=== PATIENT | female | born 1955 | race Caucasian/White ===

== ENCOUNTER → 2016-07-06 | Outpatient (CLI) | payer BC ==
[~2016-07-06] MED LIST: AMT/25 PO; ASPI1TAB83; ATOR-22 PO; COQ; FLAX12003 PO; GABA1CAP4 PO; GABA600T PO; GABA800T PO; GLC/500 PO; HYDO25 TOP; INSUINJ4 SQ; LISI-729 PO; MULT-513 PO; NVLGI SC; PRED20TA PO; RQP/2 PO; SUMA25TA12 PO; TRAM-10 PO
--- NOTE | 2016-07-06 17:04 | DIAGNOSTIC IMAGING REPORT ---
RIGHT KNEE 1 OR 2 VIEWS ROUTINE CLINICAL HISTORY: Right knee pain. COMPARISON: Right femur radiographs June 28, 2010. FINDINGS: Alignment of the right knee is anatomic. No fracture or joint effusion is present. Joint spaces are preserved. There is mild osteophytosis within the right knee. IMPRESSION: 1. No acute fracture or joint effusion of the right knee. 2. Mild osteoarthritis of the right knee. Electronically signed by: Martín Browne M.D. 07/06/2016 5:02 PM Dictated Date/Time: 07/06/2016 5:01 PM
== END | disposition home or self-care (01) ==
LOC: C.RAD 16:38
PROVIDERS: ATTEND Nurse Practitioner Family
DX: M25.561 Pain in right knee (principal)

== ENCOUNTER → 2016-08-11 | Outpatient (CLI) | payer BC ==
--- NOTE | 2016-08-11 14:09 | MAMMOGRAPHY REPORT ---
BILATERAL DIGITAL SCREENING MAMMOGRAM WITH CAD: 08/11/2016 CLINICAL HISTORY: Routine screening. Patient has no complaints. TECHNIQUE: Bilateral CC and MLO views were obtained. Current study was also evaluated with a Compu ter Aided Detection (CAD) system. COMPARISON: Comparison is made to exams dated: 07/17/2013 mammogram - [facility], mammogram - [facility], 01/06/2010 mammogram - [facility], 09/25/2007 , 03/28/2007, and 09/25/2007. BREAST COMPOSITION: The tissue of both breasts is heterogeneously dense, which may obscure small ma sses. FINDINGS: There is an incompletely visualized partially circumscribed 7 mm mass in the far posterio r, slightly lateral right breast, only seen on the CC view, for which additional spot compression to mosynthesis views and possibly ultrasound are recommended. It is unclear if this projects inferiorl y or superiorly based on the MLO view. There is decreasing nodularity in the left breast most likely represent fluctuating cysts. No other suspicious mass, architectural distortion or cluster of microcalcifications is seen. IMPRESSION: ACR BI-RADS CATEGORY 0: INCOMPLETE EVALUATION: NEED ADDITIONAL IMAGING EVALUATION The incompletely visualized, partially circumscribed 7 mm mass in the far posterior, lateral right b reast needs additional imaging evaluation. The patient will be called to schedule an appointment. Approximately 10% of breast cancers are not detected with mammography. A negative mammographic repor t should not delay biopsy if a clinically suggestive mass is present. Lovely Hilliard M.D. ay/:08/11/2016 12:59:47 Microbiology Lab Technician: Amanda BRONSON(Courtney)(Marcus), [facility] letter sent: Addl Imaging 0 BI-RADS Code: ACR BI-RADS Category 0: Incomplete Evaluation: Need Additional Imaging Evaluation
== END | disposition home or self-care (01) ==
LOC: C.MAMM 12:19
PROVIDERS: ATTEND Nurse Practitioner Family
DX: Z12.31 Encounter for screening mammogram for malignant neoplasm of breast (principal); N63 Unspecified lump in breast

== ENCOUNTER → 2016-08-18 | Outpatient (CLI) | payer BC ==
--- NOTE | 2016-08-18 13:12 | MAMMOGRAPHY REPORT ---
UNILATERAL RIGHT DIGITAL DIAGNOSTIC MAMMOGRAM TOMOSYNTHESIS AND TARGETED RIGHT ULTRASOUND: 08/18/2016 CLINICAL HISTORY: Callback from screening mammogram for right breast asymmetry. TECHNIQUE: Breast tomosynthesis in addition to standard 2D mammography was performed. Spot compress ion right CC and MLO tomosynthesis images including C views were obtained. COMPARISON: Comparison is made to exams dated: 08/11/2016 mammogram, 07/17/2013 mammogram - [facility], 10/30/2010 mammogram - [facility], 01/06/2010 mammogram - [facility], 06/05/2008, and 09/25/2007. BREAST COMPOSITION: The tissue of the right breast is heterogeneously dense, which may obscure small masses. FINDINGS: The asymmetry seen within the right slightly lateral far posterior breast on the cc view do es not persist on the additional spot compression views. Targeted ultrasound was performed of the ri ght slightly lateral breast in the region of the mammographic asymmetry. Sonographically normal tiss ue is seen, without evidence of a mass or other suspicious sonographic abnormality. The asymmetry is felt to be benign and likely represents partial visualization of the pectoralis muscle. IMPRESSION: ACR BI-RADS CATEGORY 2: BENIGN, TARGETED ULTRASOUND ACR BI-RADS CATEGORY 2: BENIGN There right breast asymmetry does not persist on the additional views, without corresponding sonograp hic abnormality evident. The asymmetry is benign and likely represents pectoralis muscle. There is no mammographic or targeted sonographic evidence of malignancy. A 1 year screening mammogram is recom mended. The patient has been verbally notified of the results. Approximately 10% of breast cancers are not detected with mammography. A negative mammographic report should not delay biopsy if a clinically suggestive mass is present. Joanie Ayala M.D. /:08/18/2016 10:35:13 Template Worker: Morenita BRONSON(Courtney)(Marcus), [facility] letter sent: Normal 1/2 BI-RADS Code: ACR BI-RADS Category 2: Benign Ultrasound BI-RADS: ACR BI-RADS Category 2: Benign
== END | disposition home or self-care (01) ==
LOC: C.MAMM 07:56
PROVIDERS: ATTEND Nurse Practitioner Family
DX: N63 Unspecified lump in breast (principal)

== ENCOUNTER → 2016-12-28 | Outpatient (CLI) | payer BC ==
[~2016-12-28] MED LIST changes: -COQ; -GABA1CAP4 PO; -GABA800T PO; -HYDO25 TOP; -PRED20TA PO; -TRAM-10 PO
--- NOTE | 2016-12-28 10:24 | DIAGNOSTIC IMAGING REPORT ---
MRI LUMBAR SPINE W/O CONTRAST CLINICAL HISTORY: Back pain with bilateral leg radiculopathy. Rest disc like syndrome. TECHNIQUE: Sagittal and axial T1, T2 and STIR images were obtained. COMPARISON STUDY: Conventional radiographic study dated 06/28/2010 OBSERVATIONS: The vertebral bodies and posterior elements appear intact. There is no abnormal bony signal present to suggest a marrow replacement process. L1-2: There is a small broad-based left paracentral disc protrusion. There is mild effacement of the thecal sac. There is no foraminal narrowing. L2-3: There is a disc bulge and broad-based central disc protrusion. There is effacement of thecal sac with mild spinal canal narrowing. There is no significant foraminal stenosis L3-4: There is a circumferential disc bulge. There is a small left posterior lateral disc protrusion. There is mild spinal canal narrowing. There is no significant foraminal stenosis L4-5: Is an annular fissure and small central disc protrusion. There is mild triangular spinal canal narrowing. There is mild right-sided foraminal narrowing. L5-S1: There is a circumferential disc bulge and tiny central disc protrusion. There is no significant spinal stenosis. There is facet joint arthropathy. There is no significant foraminal stenosis. The conus medullaris and cauda equina appear normal. IMPRESSION: 1. Moderate multilevel spondylitic changes with multilevel disc bulges and multilevel small disc protrusions. There is mild multilevel spinal canal narrowing. Electronically signed by: Tyree Zaldivar M.D. 12/28/2016 10:22 AM Dictated Date/Time: 12/28/2016 10:17 AM
== END | disposition home or self-care (01) ==
LOC: C.MRIBC 09:02
PROVIDERS: ATTEND Physician Assistant Medical
DX: M47.26 Other spondylosis with radiculopathy, lumbar region (principal); M51.26 Other intervertebral disc displacement, lumbar region

== ENCOUNTER 2017-04-03 07:53 | Emergency (ER) | payer BC ==
[~2017-04-03] VITALS: Ht 170.2 cm; Wt 60.2 kg
[~2017-04-03 07:53] MED LIST changes: -ATOR-22 PO; +COQ; +GABA800T PO; +TRAM-10 PO
[2017-04-03 08:05] VITALS: TEMP 36.7; Ht 170.2 cm; Wt 60.2 kg
[2017-04-03] MEDS ORDERED: KETOROLAC TROMETHAMINE 30 MG/ML VIAL IV STA (08:24)
[2017-04-03] MEDS ORDERED: DiphenhydrAMINE HCL 50 MG/ML VIAL IV STA (08:24)
[2017-04-03] MEDS ORDERED: METOCLOPRAMIDE HCL INJ 5 MG/ML 2 ML VIAL IV. STA (08:24)
[2017-04-03] MEDS ORDERED: MAGNESIUM SULFATE 1GM / D5W 1 GM BAG IV ONE (08:30)
[2017-04-03] MEDS ORDERED: ROTI1DIS3 TOP (08:32)
[2017-04-03] MEDS ORDERED: GABA800T PO (08:32)
[2017-04-03 09:50] VITALS: BP 157/86; PULSE 65; O2SAT 100
--- NOTE | 2017-04-03 18:58 | EMERGENCY ROOM VISIT NOTE ---
ED Visit Note First contact with patient: 08:16 CHIEF COMPLAINT: Migraine headache HISTORY OF PRESENT ILLNESS: This 61-year-old white female complains of gradual onset of a severe generalized headache that started in the early hours this morning. She has taken Imitrex 2 without improvement. There has been associated nausea but no vomiting. The patient denies fever or chills recently , and denies any other cold symptoms. There is no weakness or numbness of the extremities. There is no difficulty with speech, hearing, or vision. No trauma to the head. She does complain of significant neck pain which is consistent with her previous migraines. The pain is severe, constant, and has been slowly increasing in severity. She is not photophobic or phonophobic. This is not the worst headache of her life and is similar to previous migraines. Pain is 9/10. Patient is well known to the ED for frequent migraine headaches, though she has not been seen here since 2015. Her accompanies her today. She has a known history of restless leg syndrome and is currently on a new patch that she just started yesterday. She is unsure if there is any relation between this and her headache. She is tearful. REVIEW OF SYSTEMS: Ears: No pain or change in hearing. Neck: No stiffness, or swelling. Neurological: No changes in mental status, vertigo, focal weakness, numbness. She does have restless leg syndrome. Cardiac: No chest pain, diaphoresis, dyspnea on exertion, orthopnea, pedal edema, or palpitations. Respiratory: No cough, change in sputum, wheezes, hemoptysis, shortness of breath, or stridor. Gastrointestinal: No abdominal pain, blood in stools, diarrhea, or loss of appetite. Skin: No rash, new lesions, or masses. General: No fever or chills, fatigue, loss of appetite, or significant recent weight gain or loss. PMH: Supplemental sheet was reviewed and signed. Previous surgeries: None Medical history: Significant for migraine headaches, restless leg syndrome, hypertension, and diabetes. Family history: Significant for diabetes, heart disease, and hypertension. Parents are SOCIAL HISTORY: Patient is . No tobacco use, no EtOH use. Unemployed. Allergies: NKDA Current Medications: Reviewed and filed in patient's chart PHYSICAL EXAM: Vital Signs: Afebrile. MENTAL STATUS: Alert, oriented, and coherent. In obvious discomfort from the headache. No acute distress. Skin: Warm and dry with good turgor. No rashes or lesions. No ecchymosis or erythema. The patient is not diaphoretic. No abrasions. HEENT: Normocephalic atraumatic. Eyes PERRLA, EOMI. No conjunctiva or scleral injection. She is not photophobic. Ears TMs intact bilaterally with good light reflexes. No erythema or bulging. No hemotympanum. Canals are patent. Nares patent bilaterally without turbinate enlargement. No significant drainage. Oropharynx without erythema or exudate. Uvula midline, oral mucosa moist. No lesions present. Lymphatics are palpated without anterior or posterior chain enlargement or tenderness. NECK: Supple, tender, no nuchal rigidity. HEART: Regular rhythm and normal rate without murmurs, ectopy, gallops, or rubs. Peripheral pulses are 2+. LUNGS: Lungs are clear to auscultation. No crackles rhonchi or wheezing. Good air movement. The patient is able to take a deep breath. Abdomen: Bowel sounds present x4. Soft, nontender to palpation. No organomegaly. No masses noted. NEUROLOGIC: The patient moves all extremities well and the gait is normal. Cranial nerves 2 through 12 are intact. Gross sensation is intact across the upper and lower extremities via soft touch. EMERGENCY DEPARTMENT COURSE: The patient was educated regarding today's findings. Conservative care measures were discussed. The patient was given Benadryl 25 mg IV, Zofran 4 mg IV, magnesium 1 g IV, and Reglan 10 mg IV for the headache with significant relief of the pain and nausea. I do not suspect intracranial bleed, encephalitis, or meningitis. She did have a significant episode of restless leg syndrome while here in the ED. She did take her own home medication with relief. DIAGNOSIS: Migraine headache DISCHARGE INSTRUCTIONS & TREATMENT: Patient was given magnesium, Zofran, Benadryl, and Reglan for nausea and pain control. Rest at home in a quiet, dark room. Sunglasses may also help. Driving precautions were reviewed. Take her usual home medications for any recurrent pain. See your own doctor in follow -up. Maintain hydration. Return to the ER for any acute changes in mental status. She was reassured that I do not suspect meningitis or intracranial bleed. Problem List Medical Problems: (1) Migraines Status: Chronic Current/Historical Medications Scheduled Amitriptyline HCl (Amitriptyline HCl), 50 MG PO HS Aspirin (Aspirin), 81 MG DAILY Gabapentin (Neurontin), 800 MG PO BID Lisinopril (Prinivil), 5 MG PO DAILY Metformin Hcl (Glucophage), 1,000 MG PO BID Rotigotine (Neupro), 3 MG TOP DAILY Scheduled PRN Insulin Glargine (Lantus Solostar Pen), 16 DOSE SQ HS PRN for PRN Sumatriptan Succinate (Imitrex), 50 MG PO PRN PRN for Migraine Allergies Coded Allergies: No Known Allergies (Unverified , 04/03/17) Vital Signs Date Time Temp Pulse Resp B/P (MAP) Pulse Ox O2 Delivery O2 Flow Rate FiO2 04/03/17 09:50 65 18 157/86 100 Room Air 04/03/17 08:05 36.7 58 20 167/85 100 Room Air Medications Administered Medications (Trade) Dose Ordered Sig/Rashad Route Start Time Stop Time Status Last Admin Dose Admin Diphenhydramine HCl (Benadryl Inj) 25 mg NOW STAT IV 04/03/17 08:24 04/03/17 08:28 DC 04/03/17 08:52 25 MG Ketorolac Tromethamine (Toradol Inj) 30 mg NOW STAT IV 04/03/17 08:24 04/03/17 08:28 DC 04/03/17 08:52 30 MG Metoclopramide HCl (Reglan Inj) 10 mg NOW STAT IV. 04/03/17 08:24 04/03/17 08:28 DC 04/03/17 08:57 10 MG Magnesium Sulfate (Magnesium Sulfate) 1 gm NOW ONCE IV 04/03/17 08:30 04/03/17 08:31 DC 04/03/17 08:54 1 GM Departure Information Impression Primary Impression: Migraine Dispostion Home / Self-Care Condition GOOD Referrals Marisol Metcalf, C.R.N.P. (PCP) Forms HOME CARE DOCUMENTATION FORM, IMPORTANT VISIT INFORMATION Patient Instructions Headache Migraine Triggers Prevent, My [facility] [place] [facility] Additional Instructions Maintain hydration Rest in a quiet dark room until symptoms resolve Sunglasses may improve comfort when outside or in daylight Follow-up with your neurologist as needed Return to the ED for any acute changes or worsening of symptoms
[2017-04-04] MEDS ORDERED: INSDGI SC (06:49)
== END 2017-04-03 10:20 | disposition home or self-care (01) ==
LOC: C.EDB 07:54
DX: G43.909 Migraine, unspecified, not intractable, without status migrainosus (principal); G25.81 Restless legs syndrome; I10 Essential (primary) hypertension; E11.9 Type 2 diabetes mellitus without complications; Z79.82 Long term (current) use of aspirin; Z79.84 Long term (current) use of oral hypoglycemic drugs; Z83.3 Family history of diabetes mellitus; Z82.49 Family history of ischemic heart disease and other diseases of the circulatory system

== ENCOUNTER 2017-04-04 06:34 | Emergency (ER) | payer BC ==
[~2017-04-04] VITALS: Ht 170.2 cm; Wt 61.0 kg
[~2017-04-04 06:34] MED LIST changes: -COQ; -FLAX12003 PO; -GABA600T PO; -MULT-513 PO; -NVLGI SC; +ROTI1DIS3 TOP; -RQP/2 PO; -TRAM-10 PO
[2017-04-04 06:39] VITALS: TEMP 36.4; Ht 170.2 cm; Wt 61.0 kg
[2017-04-04] MEDS ORDERED: INSDGI SC (06:49)
[2017-04-04] MEDS ORDERED: HYDROmorphone INJ 2 MG/ML SYR/VIAL IV STA (07:10)
[2017-04-04] MEDS ORDERED: SODIUM CHLORIDE 0.9% 1000ML 1,000 ML IV STA (07:10)
[2017-04-04] MEDS ORDERED: PROMETHAZINE HCL INJ 25 MG in SODIUM CHLORIDE 0.9% 50ML 50 ML IV STA (07:10)
[2017-04-04] MEDS ORDERED: KETOROLAC TROMETHAMINE 30 MG/ML VIAL IV STA (07:10)
--- NOTE | 2017-04-04 07:33 | EMERGENCY ROOM VISIT NOTE ---
History Report prepared by Silvano: Salma Palafox Under the Supervision of: Dr. Ari Bradley M.D. First contact with patient: 07:01 Chief Complaint: HEADACHE Stated Complaint: MIGRAINE History of Present Illness The patient is a 61 year old female who presents to the Emergency Room with complaints of persistent headache starting 24 hours ago. The headache started gradually yesterday. Her headache is on the left side of her head. She tried taking Imitrex 2 times to no significant relief. She came to the ED yesterday and had some improvement. Her headache worsened again overnight. She reports nausea and light sensitivity. She started having right neck pain and right hand numbness today. She has never had this neck pain and hand numbness before. The patient has a history of migraines. She has not had a migraine this severe in almost 2 years. She has a history of diabetes. Her blood sugar was 107 this morning. Pt denies LOC, fevers, chills, visual changes, thunder clap or sudden onset of headache, carbon monoxide exposure, ear problems/hearing loss, sinus congestion/recent infection, chest pain, breathing difficulties, vomiting, abdominal pain, urinary symptoms, weakness, lymphadenopathy, rash, or other complaints. Source of History: patient, spouse/significant other Onset: 24 hours ago Position: head Quality: ache Timing: other (persistent) Associated Symptoms: + neck pain, + nausea, + numbness (right hand) Note: Pt reports light sensitivity. Review of Systems See HPI for pertinent positives and negatives. A total of ten systems were reviewed and were otherwise negative. Past Medical & Surgical Medical Problems: (1) Migraines Family History No pertinent family history Social History Smoking Status: Never Smoker Alcohol Use: none Marital Status: Housing Status: lives with family Occupation Status: retired Current/Historical Medications Scheduled Amitriptyline HCl (Amitriptyline HCl), 50 MG PO HS Aspirin (Aspirin), 81 MG DAILY Gabapentin (Neurontin), 800 MG PO BID Lisinopril (Prinivil), 5 MG PO DAILY Metformin Hcl (Glucophage), 1,000 MG PO BID Rotigotine (Neupro), 3 MG TOP DAILY Scheduled PRN Insulin Glargine (Lantus), 16 UNITS SC QPM PRN for PRN Sumatriptan Succinate (Imitrex), 50 MG PO PRN PRN for Migraine Allergies Coded Allergies: No Known Allergies (Unverified , 04/04/17) Physical Exam Vital Signs Date Time Temp Pulse Resp B/P (MAP) Pulse Ox O2 Delivery O2 Flow Rate FiO2 04/04/17 10:08 58 18 136/81 98 Room Air 04/04/17 09:01 151/97 04/04/17 08:44 59 18 100 Nasal Cannula 2.0 135/84 04/04/17 08:01 04/04/17 07:57 164/84 04/04/17 07:53 61 04/04/17 07:52 99 Nasal Cannula 2.0 04/04/17 07:52 99 Nasal Cannula 2.0 04/04/17 07:50 174/87 04/04/17 07:38 58 18 164/84 99 Nasal Cannula 2.0 04/04/17 06:39 36.4 75 24 172/95 100 Room Air Physical Exam GENERAL: Awake, alert, very uncomfortable appearing, tearful, no distress HENT: Normocephalic, atraumatic. TM's normal. Oropharynx unremarkable. EYES: PERRL. EOMI. Normal conjunctiva. Sclera non-icteric. NECK: Supple. No nuchal rigidity. FROM. No JVD or bruit. RESPIRATORY: CTA CARDIAC: RRR. No murmur. ABDOMEN: Soft, non distended. No tenderness to palpation. No rebound or guarding. No masses. RECTAL: Deferred. MUSCULOSKELETAL: Unremarkable. No edema. No discoloration. Gross motor strength symmetric. NEURO: Cranial nerves 2-12 grossly intact. Normal sensorium. No sensory or motor deficits noted. Speech normal. No pronator drift. SKIN: No rash or jaundice noted. LYMPH: No adenopathy. Medical Decision & Procedures ER Provider Diagnostic Interpretation: Radiology results as stated below per my review and radiologist interpretation: CT SCAN OF THE BRAIN WITHOUT IV CONTRAST CLINICAL HISTORY: Left-sided headache. COMPARISON STUDY: No priors. TECHNIQUE: Unenhanced axial CT scan of the brain is performed from the vertex to the skull base. A dose lowering technique was utilized adhering to the principles of ALARA. The vertex was scanned twice due to motion artifact. CT DOSE: 691.05 mGy.cm FINDINGS: Brain parenchyma: The brain parenchyma is normal in appearance. There is no hemorrhage, mass effect, or evidence of acute territorial ischemia by CT criteria. Chavez-white matter is preserved. No extra-axial fluid collection is seen. Ventricles, sulci, cisterns: Normal in configuration. Intracranial vasculature: There is mild atherosclerotic calcification of the cavernous carotid arteries. Calvarium: Unremarkable. Sinuses and mastoids: The visualized paranasal sinuses are clear. The mastoid air cells are well pneumatized. Orbits: The bony orbits are grossly intact. IMPRESSION: There is no hemorrhage, mass effect, or evidence of acute territorial ischemia by CT criteria. Electronically signed by: Alessandro Rodarte M.D. 04/04/2017 8:49 AM Dictated Date/Time: 04/04/2017 8:46 AM Laboratory Results 04/04/17 07:30 Red Blood Count 4.37, Mean Corpuscular Volume 90.2, Mean Corpuscular Hemoglobin 30.7, Mean Corpuscular Hemoglobin Concent 34.0, Mean Platelet Volume 11.5, Neutrophils (%) (Auto) 50.1, Lymphocytes (%) (Auto) 38.2, Monocytes (%) (Auto) 7.5, Eosinophils (%) (Auto) 3.3, Basophils (%) (Auto) 0.6, Neutrophils # (Auto) 3.47, Lymphocytes # (Auto) 2.64, Monocytes # (Auto) 0.52, Eosinophils # (Auto) 0.23, Basophils # (Auto) 0.04 04/04/17 07:30 Test 04/04/17 07:30 White Blood Count 6.92 K/uL (4.8-10.8) Red Blood Count 4.37 M/uL (4.2-5.4) Hemoglobin 13.4 g/dL (12.0-16.0) Hematocrit 39.4 % (37-47) Mean Corpuscular Volume 90.2 fL (80-100) Mean Corpuscular Hemoglobin 30.7 pg (25-34) Mean Corpuscular Hemoglobin Concent 34.0 g/dl (32-36) Platelet Count 235 K/uL (130-400) Mean Platelet Volume 11.5 fL (7.4-10.4) Neutrophils (%) (Auto) 50.1 % Lymphocytes (%) (Auto) 38.2 % Monocytes (%) (Auto) 7.5 % Eosinophils (%) (Auto) 3.3 % Basophils (%) (Auto) 0.6 % Neutrophils # (Auto) 3.47 K/uL (1.4-6.5) Lymphocytes # (Auto) 2.64 K/uL (1.2-3.4) Monocytes # (Auto) 0.52 K/uL (0.11-0.59) Eosinophils # (Auto) 0.23 K/uL (0-0.5) Basophils # (Auto) 0.04 K/uL (0-0.2) RDW Standard Deviation 41.7 fL (36.4-46.3) RDW Coefficient of Variation 12.7 % (11.5-14.5) Immature Granulocyte % (Auto) 0.3 % Immature Granulocyte # (Auto) 0.02 K/uL (0.00-0.02) Anion Gap 10.0 mmol/L (3-11) Est Creatinine Clear Calc Drug Dose 76.0 ml/min Estimated GFR () 101.6 Estimated GFR (Non- 87.7 BUN/Creatinine Ratio 31.4 (10-20) Calcium Level 9.0 mg/dl (8.5-10.1) Total Bilirubin 0.4 mg/dl (0.2-1) Direct Bilirubin < 0.1 mg/dl (0-0.2) Aspartate Amino Transf (AST/SGOT) 15 U/L (15-37) Alanine Aminotransferase (ALT/SGPT) 21 U/L (12-78) Alkaline Phosphatase 77 U/L (45-117) Total Creatine Kinase 93 U/L (26-192) Creatine Kinase MB 1.9 ng/ml (0.5-3.6) Creatine Kinase MB Ratio 2.0 (0-3.0) Troponin I < 0.015 ng/ml (0-0.045) Total Protein 6.8 gm/dl (6.4-8.2) Albumin 3.4 gm/dl (3.4-5.0) Lipase 123 U/L (73-393) Laboratory results reviewed by me Medications Administered Medications (Trade) Dose Ordered Sig/Rashad Route Start Time Stop Time Status Last Admin Dose Admin Sodium Chloride 1,000 ml @ 999 mls/hr Q1H1M STAT IV 04/04/17 07:10 04/04/17 08:10 DC 04/04/17 07:36 999 MLS/HR Ketorolac Tromethamine (Toradol Inj) 10 mg NOW STAT IV 04/04/17 07:10 04/04/17 07:14 DC 04/04/17 07:36 10 MG Hydromorphone HCl (Dilaudid Inj) 1 mg NOW STAT IV 04/04/17 07:10 04/04/17 07:14 DC 04/04/17 07:37 1 MG Promethazine HCl 25 mg/Sodium Chloride 51 ml @ 204 mls/hr NOW STAT IV 04/04/17 07:10 04/04/17 07:24 DC 04/04/17 07:37 204 MLS/HR ECG Indication: back/shoulder pain Rate (beats per minute): 58 Rhythm: sinus bradycardia Findings: nonspecific-ST abn, no acute ischemic change Comparison ECG Date: 16-May-2012 Change: no significant change Change: Patient's electrocardiogram was interpreted by me. ED Course 0705: The patient was evaluated in room B2. A complete history and physical exam was performed. 0710: Promethazine HCl 25 mg/Sodium Chloride 51 ml @ 204 mls/hr IV, Dilaudid Inj 1 mg IV, Toradol Inj 10 mg IV, NSS 1000 ml @ 999 mls/hr IV. 0745: I reevaluated the patient. She is feeling better. 0844: I reevaluated the patient. She has returned from imaging. 1025: I reevaluated the patient. She is feeling much improved. I discussed results and discharge instructions: She verbalized understanding and agreement. The patient is ready for discharge. Medical Decision Prior records/ancillary studies reviewed. Triage Nursing notes reviewed and agree them. The patient's history was concerning for headache on the left side and right- sided shoulder and arm pain. Differential diagnosis: Etiologies such as migraine headache, meningitis, sinusitis, CO exposure, ICH, SAH, infection, tumor, headache, sinus thrombosis, arterial dissection, musculoskeletal, cardiac sources, as well as others were entertained. Physical examination findings: As above. Non-focal. Very uncomfortable. ER treatment provided: Saline lock Normal saline hydration 1 L IV Toradol 10 mg IV Phenergan 25 mg IV Dilaudid 1 mg Steroids not given secondary to her diabetes On reassessment the patient felt significantly better. Diagnostics interpreted by me: ECG: Normal without ischemic change. The labs revealed an unremarkable CBC and chemistry panel. Cardiac markers negative. Imaging studies: CT scan as above. The patient presented with continued migraine-like symptoms. She has a history of migraines. She was seen yesterday and was treated. She had some improvement but her symptoms returned. He has significant restless leg syndrome and experienced worsening symptoms with Reglan yesterday. She notes having Phenergan in the past without those issues. She was treated as above. She had excellent relief of her symptoms. Record review indicated that she had not had imaging in quite some time. CT imaging was performed and was negative. The patient also notes some radicular pain on the right shoulder and arm. Cardiac workup did not reveal any findings. Her symptoms seemed to be musculoskeletal. She has seen Dr. Trujillo and neurology. I encouraged her to have a close follow-up. If she worsens in any way she will be back. By the evaluation outlined above emergent etiologies such as meningitis, sinusitis, CO exposure, ICH, SAH, infection, temporal arteritis, tumor, sinus thrombosis, arterial dissection, as well as others were deemed relatively unlikely. The patient and her were informed about the findings as listed above. All questions were answered and they were pleased with the treatment. Return instructions were outlined and the patient was discharged in stable condition. Outpatient prescription management: Continue current medications Referral: The patient was referred back to her primary care physician for follow-up in 2 to 3 days for a recheck of the current condition. Medication Reconcilliation Current Medication List: was personally reviewed by me Blood Pressure Screening Patient's blood pressure: Elevated blood pressure Blood pressure disposition: Referred to PCP Impression Primary Impression: Headache Scribe Attestation The scribe's documentation has been prepared under my direction and personally reviewed by me in its entirety. I confirm that the note above accurately reflects all work, treatment, procedures, and medical decision making performed by me. Departure Information Dispostion Home / Self-Care Referrals Marisol Metcalf C.R.N.P. (PCP) Patient Instructions My [facility] Additional Instructions HEADACHE INSTRUCTIONS: DO NOT drive, drink alcohol, operate machinery, or perform dangerous activities today. You were given medications in the ER that can affect your ability to safely function or operate a vehicle. Rest today in a quiet, peaceful, dark environment and get a full 8-10 hrs of sleep tonight. Avoid loud noises, smoke/smoking, alcohol, bright lights, stress, or physical exertion today to minimize the chance the headache may return. Continue current medications. Monitor blood sugar regularly. Ibuprofen(Motrin, Advil) may be used for fever or pain. Use 600mg every six hours as needed. Take with food. Avoid using more than 2400mg in a 24 hour period. Do not use 2400mg per day for more than three consecutive days without physician direction. Prolonged inappropriate use can lead to stomach upset or ulcers. (AND/OR) Acetaminophen(Tylenol) may be used for fever or pain. Use 1000mg every six hours as needed. Avoid using more than 4000mg in a 24 hour period. Return to the ER for passing out, worsening headache, vision problems, neck stiffness/pain, fevers, vomiting, worsening of your condition, or as needed. Follow up with your primary physician in 2-3 days for a recheck of your current condition.
[2017-04-04 07:52] VITALS: O2SAT 99
[2017-04-04 07:55] LABS: BASO % 0.6 %; BASO ABS # 0.04 K/uL (0-0.2); EOS % 3.3 %; EOS ABS # 0.23 K/uL (0-0.5); HEMATOCRIT 39.4 % (37-47); HEMOGLOBIN 13.4 g/dL (12.0-16.0); IG# 0.02 K/uL (0.00-0.02); LYMPH % 38.2 %; LYMPH ABS # 2.64 K/uL (1.2-3.4); MEAN CELL VOLUME 90.2 fL (80-100); MEAN CORPUSCULAR HEMOGLOBIN 30.7 pg (25-34); MEAN PLATELET VOLUME 11.5 fL (7.4-10.4); MONO % 7.5 %; MONO ABS # 0.52 K/uL (0.11-0.59); NEUT % 50.1 %; NEUT ABS # 3.47 K/uL (1.4-6.5); PLATELET COUNT 235 K/uL (130-400); RED CELL DISTRIBUTION WIDTH CV 12.7 % (11.5-14.5); RED CELL DISTRIBUTION WIDTH SD 41.7 fL (36.4-46.3); WHITE BLOOD COUNT 6.92 K/uL (4.8-10.8)
[2017-04-04 08:12] LABS: ALBUMIN 3.4 gm/dl (3.4-5.0); ALT/SGPT 21 U/L (12-78); AST/SGOT 15 U/L (15-37); BLOOD UREA NITROGEN 23 mg/dl (7-18); CARBON DIOXIDE 25 mmol/L (21-32); CREATININE 0.73 mg/dl (0.60-1.20); GLUCOSE 101 mg/dl (70-99); LIPASE 123 U/L (73-393); POTASSIUM 3.6 mmol/L (3.5-5.1); SODIUM 140 mmol/L (136-145)
[2017-04-04 08:17] LABS: ALKALINE PHOSPHATASE 77 U/L (45-117); CKMB 1.9 ng/ml (0.5-3.6); TOTAL PROTEIN 6.8 gm/dl (6.4-8.2)
--- NOTE | 2017-04-04 08:51 | DIAGNOSTIC IMAGING REPORT ---
CT SCAN OF THE BRAIN WITHOUT IV CONTRAST CLINICAL HISTORY: Left-sided headache. COMPARISON STUDY: No priors. TECHNIQUE: Unenhanced axial CT scan of the brain is performed from the vertex to the skull base. A dose lowering technique was utilized adhering to the principles of ALARA. The vertex was scanned twice due to motion artifact. CT DOSE: 691.05 mGy.cm FINDINGS: Brain parenchyma: The brain parenchyma is normal in appearance. There is no hemorrhage, mass effect, or evidence of acute territorial ischemia by CT criteria. Chavez-white matter is preserved. No extra-axial fluid collection is seen. Ventricles, sulci, cisterns: Normal in configuration. Intracranial vasculature: There is mild atherosclerotic calcification of the cavernous carotid arteries. Calvarium: Unremarkable. Sinuses and mastoids: The visualized paranasal sinuses are clear. The mastoid air cells are well pneumatized. Orbits: The bony orbits are grossly intact. IMPRESSION: There is no hemorrhage, mass effect, or evidence of acute territorial ischemia by CT criteria. Electronically signed by: Alessandro Rodarte M.D. 04/04/2017 8:49 AM Dictated Date/Time: 04/04/2017 8:46 AM
[2017-04-04 10:08] VITALS: BP 136/81; PULSE 58; O2SAT 98
== END 2017-04-04 11:04 | disposition home or self-care (01) ==
LOC: C.EDB 06:35
DX: R51 Headache (principal); M54.2 Cervicalgia; R20.0 Anesthesia of skin; R00.1 Bradycardia, unspecified; E11.9 Type 2 diabetes mellitus without complications; Z79.82 Long term (current) use of aspirin; Z79.84 Long term (current) use of oral hypoglycemic drugs; Z79.899 Other long term (current) drug therapy

== ENCOUNTER 2017-10-27 11:20 | Emergency (ER) | payer BC ==
[~2017-10-27] VITALS: Ht 170.2 cm; Wt 62.7 kg
[~2017-10-27 11:20] MED LIST changes: +INSDGI SC; -INSUINJ4 SQ; +PRAM1TAB47 PO
[2017-10-27 11:24] VITALS: TEMP 36.8; Ht 170.2 cm; Wt 62.7 kg
[2017-10-27] MEDS ORDERED: NITROGLYCERIN 0.4 MG SL PER TAB CHARGE SL PRN (11:45)
[2017-10-27 11:55] VITALS: O2SAT 96
[2017-10-27 11:55] LABS: BASO % 0.4 %; BASO ABS # 0.02 K/uL (0-0.2); EOS % 3.1 %; EOS ABS # 0.15 K/uL (0-0.5); HEMATOCRIT 35.6 % (37-47); HEMOGLOBIN 11.8 g/dL (12.0-16.0); LYMPH % 40.4 %; LYMPH ABS # 1.98 K/uL (1.2-3.4); MEAN CELL VOLUME 91.3 fL (80-100); MEAN CORPUSCULAR HEMOGLOBIN 30.3 pg (25-34); MEAN CORPUSCULAR HGB CONC 33.1 g/dl (32-36); MEAN PLATELET VOLUME 11.6 fL (7.4-10.4); MONO % 5.5 %; MONO ABS # 0.27 K/uL (0.11-0.59); NEUT % 50.6 %; NEUT ABS # 2.48 K/uL (1.4-6.5); PLATELET COUNT 197 K/uL (130-400); RED CELL DISTRIBUTION WIDTH CV 12.7 % (11.5-14.5); RED CELL DISTRIBUTION WIDTH SD 42.3 fL (36.4-46.3)
[2017-10-27] MEDS ORDERED: GABA800T PO (11:55)
--- NOTE | 2017-10-27 12:01 | DIAGNOSTIC IMAGING REPORT ---
CHEST ONE VIEW PORTABLE CLINICAL HISTORY: 62 years-old Female presenting with CHEST PAIN. TECHNIQUE: Portable upright AP view of the chest was obtained. COMPARISON: 05/16/2012. FINDINGS: Cardiomediastinal silhouette normal. No focal opacity. No large effusion or pneumothorax. Osseous structures normal. Upper abdomen normal. IMPRESSION: 1. No acute cardiopulmonary disease. Electronically signed by: Dion Lobo M.D. 10/27/2017 11:59 AM Dictated Date/Time: 10/27/2017 11:58 AM
[2017-10-27 12:09] LABS: INR 1.1 (0.9-1.1); PTT PATIENT 23.3 SECONDS (21.0-31.0)
[2017-10-27 12:19] LABS: ALBUMIN 3.4 gm/dl (3.4-5.0); ALKALINE PHOSPHATASE 68 U/L (45-117); ALT/SGPT 25 U/L (12-78); AST/SGOT 19 U/L (15-37); BLOOD UREA NITROGEN 21 mg/dl (7-18); CALCIUM 8.5 mg/dl (8.5-10.1); CARBON DIOXIDE 27 mmol/L (21-32); CKMB 4.2 ng/ml (0.5-3.6); CREATININE 0.88 mg/dl (0.60-1.20); GLUCOSE 138 mg/dl (70-99); LIPASE 82 U/L (73-393); POTASSIUM 4.1 mmol/L (3.5-5.1); SODIUM 139 mmol/L (136-145); TOTAL PROTEIN 6.5 gm/dl (6.4-8.2)
[2017-10-27 17:07] VITALS: BP 140/98; PULSE 88; O2SAT 98
--- NOTE | 2017-10-27 17:45 | EXERCISE STRESS ECHO ---
*NOTICE TO RECEIVING LIBERTARIAN AGENCY This information is strictly Confidential and protected under [place] law. [place] law prohibits you from making any further disclosure of this information unless further disclosure is expressly permitted by the written consent of the person to whom it pertains or is authorized by law. A general authorization for the release of medical or other information is not sufficient for this purpose. Hospital accepts no responsibility if the information is made available to any other person, INCLUDING THE PATIENT. Interpretation Summary * Name: PORTER WILKINS Study Date: 10/27/2017 02:28 PM BP: 136/76 mmHg * Patient Location: C.EDB HR: 59 * : 1955 (M/d/yyyy) Gender: Female Height: 67 in * Age: 62 yrs Ethnicity: CA Weight: 138 lb * Ordering Physician: Randolph Ceballos * Referring Physician: Marisol Metcalf * Performed By: Ender Coronel RCS * * Reason For Study: Chest Pain * BSA: 1.7 m2 * -- Conclusions -- * There is mild mitral regurgitation. * Right ventricular systolic pressure is normal. * Grade I diastolic dysfunction, (abnormal relaxation pattern). * The left ventricular wall motion is normal at rest. * Normal exercise echocardiogram without evidence of inducible ischemia Procedure Details * ECHOEX, CPT #[id number] * ECHO COLOR FLOW, CPT #[id number] * ECHO DOPPLER, CPT #[id number] Left Ventricular Findings with Stress * Normal exercise echocardiogram without evidence of inducible ischemia Left Ventricle * The left ventricle is grossly normal size. * There is normal left ventricular wall thickness. * Grade I diastolic dysfunction, (abnormal relaxation pattern). * The left ventricular wall motion is normal at rest. Right Ventricle * The right ventricle is normal in size and function. * The right ventricular systolic function is normal as assessed by tricuspid annular plane systolic excursion (TAPSE) (normal >1.5 cm). Atria * The left atrial size is normal. * Right atrial size is normal. Mitral Valve * The mitral valve anatomy is normal. * There is mild mitral regurgitation. * The mitral regurgitant jet is posteriorly directed, which is consistent with anterior leaflet pathology. Tricuspid Valve * The tricuspid valve is not well visualized, but is grossly normal. * There is trace tricuspid regurgitation. * Right ventricular systolic pressure is normal. Aortic Valve * Probably trileaflet, but bicuspid valve could not be definitively excluded. * No hemodynamically significant valvular aortic stenosis. * There is no significant aortic regurgitation. Pulmonic Valve * The pulmonic valve is not well seen, but is grossly normal. Pericardium * There is no pericardial effusion. Stress Parameters * Normal baseline electrocardiogram. * Stress ECG: No ST changes. No arrhythmias. * The stress portion of this study was personally supervised by the undersigned interpreting physician. * Rest heart rate was '59' BPM. * Rest blood pressure was '136/76' * Maximum heart rate achieved was 171 bpm. * Maximum heart rate was 109 % of maximum age-predicted heart rate. * Maximum blood pressure was '178/69' * Total exercise time was '10:00' * Maximum exercise MET level achieved was '11.7' METS * Maximum treadmill speed was '4.1' miles per hour. * Maximum treadmill elevation was '16'% grade. * Exercise was terminated due to 'achieving target heart rate' * Normal blood pressure response to exercise. Left Ventricular Findings with Stress * Baseline EKG was normal There were no significant ST or T-wave changes during exercise or recovery Baseline wall motion and ejection fraction were normal There is normal augmentation of all segments without development of regional wall motion abnormalities at peak exertion No symptoms of chest pain reported Hernandez treadmill score: 10 (low risk) MMode 2D Measurements and Calculations Ao root diam 3.3 cm Ao root area 8.5 cm\S\2 ACS 1.6 cm LA dimension 3.2 cm asc Aorta Diam 3.0 cm LA/Ao 0.97 EDV(MOD-sp4) 90.0 ml ESV(MOD-sp4) 43.0 ml EF(MOD-sp4) 52.2 % EDV(MOD-sp2) 74.0 ml ESV(MOD-sp2) 34.0 ml EF(MOD-sp2) 54.1 % SV(MOD-sp4) 47.0 ml SI(MOD-sp4) 27.2 ml/m\S\2 SV(MOD-sp2) 40.0 ml SI(MOD-sp2) 23.2 ml/m\S\2 Doppler Measurements and Calculations MV E max chris 104.0 cm/sec MV A max chris 136.8 cm/sec MV E/A 0.76 MV P1/2t max chris 119.3 cm/sec MV P1/2t 71.4 msec MVA(P1/2t) 3.1 cm\S\2 MV dec slope 489.2 cm/sec\S\2 MV dec time 0.19 sec Ao V2 max 125.1 cm/sec Ao max PG 6.3 mmHg Ao max PG (full) 2.9 mmHg LV V1 max PG 3.4 mmHg LV V1 max 92.2 cm/sec PA V2 max 85.6 cm/sec PA max PG 2.9 mmHg PI max chris 193.7 cm/sec PI max PG 15.0 mmHg PI dec slope 222.6 cm/sec\S\2 PI P1/2t 254.9 msec TR max chris 237.0 cm/sec
--- NOTE | 2017-10-27 21:57 | EMERGENCY ROOM VISIT NOTE ---
History First contact with patient: 11:26 Chief Complaint: CHEST PAIN Stated Complaint: CHEST PAIN,SOB,LIGHTHEADED Nursing Triage Summary: pt has had a chest discomfort for several days, called pcp this am and told to come here. " not really pain, but a different feeling left upper chest, has had right arm pain anad left arm numbness" pt is sure she is having a heart attack History of Present Illness The patient is a 62 year old female who presents to the Emergency Room with complaints of chest pain. The patient is concerned that she is having a heart attack. The patient reports predominantly left-sided chest discomfort radiating into the left shoulder region. She reports that she did have right neck, jaw and right arm pain that started 2 days ago. She describes it as a pressure sensation of the left chest. It does not radiate to the back. She denies any diaphoresis, nausea or shortness of breath. The patient denies any recent trauma to the chest. The patient reports that she is active and exercises frequently. The patient does have a history of diabetes and hypercholesterolemia. She denies history of hypertension or tobacco use. She reports a strong family history of coronary artery disease with her dad dying at the age of 51 from a myocardial infarction. The patient does not notice any change in the pain with position or activity. On my exam, she rated her chest discomfort is 7 out of 10, rating her pain an 8 out of 10 in triage. Review of Systems HEENT: Denies dizziness, visual problems, hearing loss, tinnitus. Denies difficulty swallowing or oral lesions. PULMONARY: Denies cough, shortness of breath, sputum production or hemoptysis. CARDIOVASCULAR: Denies recent palpitations, dyspnea on exertion, orthopnea or peripheral edema. Otherwise see HPI. GASTROINTESTINAL: Denies diarrhea, constipation, nausea, vomiting, or abdominal pain. GENITOURINARY: Denies dysuria, frequency, urgency or nocturia. NEUROLOGIC: Denies history of epilepsy, CVA, TIA or chronic headaches. MUSCULOSKELETAL: Denies history of joint tenderness/swelling. SKIN: Denies rashes or lesions. PSYCHIATRIC: Denies history of depression or mental illness. ENDOCRINE: Denies history of diabetes or thyroid disorders. Past Medical/Surgical History Medical Problems: (1) Migraines Medical Problems: (1) Anxiety State Nos (2) Hypertension Nos (3) Migraines (4) Radiculopathy, Lumbar Region (5) Restless Legs Syndrome (6) Sciatica (7) Type 2 Diabetes Mellitus Without Complications Family History No pertinent family history Social History Smoking Status: Never Smoker Alcohol Use: none Marital Status: Housing Status: lives with family Occupation Status: retired Current/Historical Medications Scheduled Amitriptyline HCl (Amitriptyline HCl), 50 MG PO HS Aspirin (Aspirin), 81 MG DAILY Gabapentin (Neurontin), 800 MG PO HS Lisinopril (Prinivil), 5 MG PO DAILY Metformin Hcl (Glucophage), 1,000 MG PO BID Pramipexole Dihydrochloride (Mirapex), 1 TAB PO BID Scheduled PRN Insulin Glargine (Lantus), 16 UNITS SC QPM PRN for PRN Sumatriptan Succinate (Imitrex), 50 MG PO PRN PRN for Migraine Physical Exam Vital Signs Date Time Temp Pulse Resp B/P (MAP) Pulse Ox O2 Delivery O2 Flow Rate FiO2 10/27/17 17:07 88 18 140/98 98 10/27/17 14:40 62 19 115/59 97 Room Air 10/27/17 13:01 126/71 10/27/17 12:50 63 14 98 10/27/17 12:20 64 28 98 10/27/17 12:01 113/64 10/27/17 11:56 Room Air 10/27/17 11:55 96 Room Air 10/27/17 11:51 116/64 10/27/17 11:50 68 15 117/69 94 10/27/17 11:43 69 10/27/17 11:24 36.8 71 18 125/74 99 Room Air Physical Exam CONSTITUTIONAL: Healthy and well nourished. Alert and oriented X 3 with positive affect. Patient does not appear in any acute distress. HEENT: Normocephalic, atraumatic. Pupils equal, round and reactive. No scleral icterus or conjunctival injection/pallor. NECK: Full active range of motion without discomfort. No JVD or carotid bruits. RESPIRATORY: Clear to auscultation bilaterally with no wheezing, crackles, rhonchi or stridor. The breathing does not cause any discomfort. CARDIOVASCULAR: Regular rate and rhythm with no murmurs, rubs or gallops. GASTROINTESTINAL: Bowel sounds present in all quadrants. Abdomen is soft and nontender to palpation. No hepatosplenomegaly. MUSCULOSKELETAL: Full range of motion of all joints without discomfort. Patient has no tenderness to palpation across the left anterior chest wall, costochondral joints or sternum. She has no worsening pain with range of motion of the shoulders. INTEGUMENTARY: No rash or other significant dermatologic conditions noted. HEMATOLOGIC: No ecchymosis or petechiae noted. NEUROLOGIC: No focal neurologic deficits noted. Medical Decision & Procedures ER Provider Diagnostic Interpretation: My interpretation of an ECG shows a normal sinus rhythm of [address] elevation or other conduction abnormalities. My interpretation of a portable chest x-ray does not show any consolidations, pneumothorax or cardiac prominence. Radiologist report is as follows: CHEST ONE VIEW PORTABLE CLINICAL HISTORY: 62 years-old Female presenting with CHEST PAIN. TECHNIQUE: Portable upright AP view of the chest was obtained. COMPARISON: 05/16/2012. FINDINGS: Cardiomediastinal silhouette normal. No focal opacity. No large effusion or pneumothorax. Osseous structures normal. Upper abdomen normal. IMPRESSION: 1. No acute cardiopulmonary disease. Laboratory Results 10/27/17 11:45 Red Blood Count 3.90, Mean Corpuscular Volume 91.3, Mean Corpuscular Hemoglobin 30.3, Mean Corpuscular Hemoglobin Concent 33.1, Mean Platelet Volume 11.6, Neutrophils (%) (Auto) 50.6, Lymphocytes (%) (Auto) 40.4, Monocytes (%) (Auto) 5.5, Eosinophils (%) (Auto) 3.1, Basophils (%) (Auto) 0.4, Neutrophils # (Auto) 2.48, Lymphocytes # (Auto) 1.98, Monocytes # (Auto) 0.27, Eosinophils # (Auto) 0.15, Basophils # (Auto) 0.02 10/27/17 11:45 Test 10/27/17 11:45 White Blood Count 4.90 K/uL (4.8-10.8) Red Blood Count 3.90 M/uL (4.2-5.4) Hemoglobin 11.8 g/dL (12.0-16.0) Hematocrit 35.6 % (37-47) Mean Corpuscular Volume 91.3 fL (80-100) Mean Corpuscular Hemoglobin 30.3 pg (25-34) Mean Corpuscular Hemoglobin Concent 33.1 g/dl (32-36) Platelet Count 197 K/uL (130-400) Mean Platelet Volume 11.6 fL (7.4-10.4) Neutrophils (%) (Auto) 50.6 % Lymphocytes (%) (Auto) 40.4 % Monocytes (%) (Auto) 5.5 % Eosinophils (%) (Auto) 3.1 % Basophils (%) (Auto) 0.4 % Neutrophils # (Auto) 2.48 K/uL (1.4-6.5) Lymphocytes # (Auto) 1.98 K/uL (1.2-3.4) Monocytes # (Auto) 0.27 K/uL (0.11-0.59) Eosinophils # (Auto) 0.15 K/uL (0-0.5) Basophils # (Auto) 0.02 K/uL (0-0.2) RDW Standard Deviation 42.3 fL (36.4-46.3) RDW Coefficient of Variation 12.7 % (11.5-14.5) Immature Granulocyte % (Auto) 0.0 % Immature Granulocyte # (Auto) 0.00 K/uL (0.00-0.02) Prothrombin Time 11.1 SECONDS (9.0-12.0) Prothromb Time International Ratio 1.1 (0.9-1.1) Activated Partial Thromboplast Time 23.3 SECONDS (21.0-31.0) Partial Thromboplastin Ratio 0.9 D-Dimer 210 ug/L FEU (0-500) Anion Gap 4.0 mmol/L (3-11) Est Creatinine Clear Calc Drug Dose 62.8 ml/min Estimated GFR () 80.5 Estimated GFR (Non- 69.4 BUN/Creatinine Ratio 23.5 (10-20) Calcium Level 8.5 mg/dl (8.5-10.1) Total Bilirubin 0.4 mg/dl (0.2-1) Direct Bilirubin < 0.1 mg/dl (0-0.2) Aspartate Amino Transf (AST/SGOT) 19 U/L (15-37) Alanine Aminotransferase (ALT/SGPT) 25 U/L (12-78) Alkaline Phosphatase 68 U/L (45-117) Total Creatine Kinase 164 U/L (26-192) Creatine Kinase MB 4.2 ng/ml (0.5-3.6) Creatine Kinase MB Ratio 2.6 (0-3.0) Troponin I < 0.015 ng/ml (0-0.045) Total Protein 6.5 gm/dl (6.4-8.2) Albumin 3.4 gm/dl (3.4-5.0) Lipase 82 U/L (73-393) The above labs were reviewed. Troponin and d-dimer are normal. The patient has a mild anemia with a hemoglobin of 11.8. Glucose is 138. ED Course Patient history and physical exam were performed. Nurse's notes were reviewed. Vital signs were reviewed and were normal. With patient risk factors and presenting symptoms, I did recommend administering nitroglycerin sublingual protocol. Initial ECG was reviewed and was normal. IV access was established, and labs were drawn. When the nurse went to administer the nitroglycerin, the patient reports that she had minimal pain, rating her discomfort a 2 out of 10 when I went back to evaluate the patient. She refused nitroglycerin treatment at that time, as well as other analgesics. A portable chest x-ray was normal. Remaining labs, including troponin and d-dimer were normal. She had no other acute findings on workup, and still denied any significant chest discomfort. I did discuss the case further with Dr. Torres, ED at a physician, who recommended hospitalist consultation for cardiac rule out. When I went back into speak with the patient about the need for a stress echo, the patient reports that she would refuse admission unless she could have testing today. At this point, I then spoke with Dr. Villanueva, [facility] power press tender who also agreed that a stress echo should be performed, and would get her scheduled for this afternoon. The patient was advised of the situation and that the cardiopulmonary lab would call when ready for her. The patient then became argumentative with her nurse, stating that if she was not down for her testing within 30 minutes, she was leaving. I spoke again with the patient and told her that she is welcome to leave, but I would ask for her to sign an AGAINST MEDICAL ADVICE form. The patient reported that she would continue waiting, and was taken for her stress echo which turned out to be normal. When she returned to the emergency department, she denied any persistent pain, and apologized for being rude to staff. The patient is wondering whether her pain could be secondary to reflux or gallbladder disease. I offered to perform a gallbladder ultrasound, but the patient refused, reporting that she just wanted to go home. She was encouraged to follow-up with her PCP within the next few days for reevaluation. She is welcome to return to the emergency department for any progressively worsening pain, fever, vomiting or other concerns. I gave her instructions to take Maalox or Gaviscon for relief. Patient reports that she already takes Zantac for occasional reflux. The patient was happy with plan of care, and voiced understanding of all discharge instructions. Medical Decision The patient's workup today is not suggestive of acute cardiac etiology. The patient did have a normal stress test cardiology evaluation. The patient does have normal labs that are not suggestive of acute pancreatitis, cholecystitis or hepatitis. Certainly biliary colic is possible, however the patient refused any further imaging studies while in the emergency department. Her x-rays are not suggestive of pneumothorax, pneumonia or other significant cardiopulmonary etiologies. I do not suspect AAA or aortic dissection. I do feel that the patient is stable for outpatient management at this time. Medication Reconcilliation Current Medication List: was personally reviewed by me Blood Pressure Screening Patient's blood pressure: Normal blood pressure Impression Primary Impression: Non-cardiac chest pain Departure Information Dispostion Home / Self-Care Condition GOOD Forms Call Back Authorization, HOME CARE DOCUMENTATION FORM, IMPORTANT VISIT INFORMATION Patient Instructions My [facility] Seen Additional Instructions Continue to take her Pepcid AC and/or Maalox or Gaviscon in case this is related to her stomach. Follow-up with your PCP to discuss further workup of your symptoms. Return to the emergency department for any developing shortness of breath, fever or other concerning symptoms.
== END 2017-10-27 17:08 | disposition home or self-care (01) ==
LOC: C.EDB 11:21
DX: R07.89 Other chest pain (principal); I10 Essential (primary) hypertension; G25.81 Restless legs syndrome; E11.9 Type 2 diabetes mellitus without complications; Z79.84 Long term (current) use of oral hypoglycemic drugs; Z79.82 Long term (current) use of aspirin

== ENCOUNTER 2024-03-27 08:01 | Inpatient (IN) ==
[2024-03-27] MEDS ORDERED: MoRPHine SULFATE 2 MG/ML CARP IV PRN (08:41)
--- NOTE | 2024-03-27 08:46 | Emergency Department Note ---
Impression & Plan Vomiting and diarrhea, Acute dehydration, Diffuse abdominal pain, Elevated lactic acid level, Failure of outpatient treatment, Acute hyperglycemia ED Provider Note NAME: PORTER WILKINS AGE: 68 SEX: F : 1955 ARRIVES VIA: Walk-In INFORMANT: [Patient] ED PROVIDER(S): [Alessandro Haque MD] CHIEF COMPLAINT: Abdominal pain, diarrhea HISTORY OF PRESENT ILLNESS: The patient is a 68-year-old female who has been ill for around 4 days. She has had vomiting, diarrhea, abdominal cramping, cough. No fever recorded. Her had diarrhea for a day but he quickly recovered. Patient is not recovering as quickly in fact, she was here yesterday in the ED and her evaluation was essentially unremarkable. She was discharged feeling better but then worsened in the last 12 hours. She no longer is vomiting but has a lot of diffuse abdominal pain. She also is still having diarrhea. She is having some black diarrhea but, she did use Pepto-Bismol. The patient states that she also is still coughing. She states the pain in the abdomen radiates around both sides. The patient's sugar has been high as well, she has a history of diabetes. PMHx/PSHx/Social Hx: See Below PHYSICAL EXAM: GENERAL: Patient is in mild distress from pain. HEENT: No acute trauma, normocephalic atraumatic, mucous membranes moist, no nasal congestion. NECK: No stridor, no adenopathy, no meningismus, trachea is midline. LUNGS: Clear to auscultation bilaterally, no wheeze, no rhonchi, breath sounds equal. HEART: Without murmurs gallops or rubs, regular rate and rhythm. ABDOMEN: Soft, no distention, diffusely mildly tender. EXTREMITIES: No cyanosis, full range of motion of all the joints without pain or difficulty. NEUROLOGIC: Oriented x 3, no acute motor or sensory deficits, no focal weakness. SKIN: No jaundice, no diaphoresis. DIFFERENTIAL DIAGNOSIS: Colitis, diverticulitis, bacterial or foodborne illness, dehydration, among others. EMERGENCY DEPARTMENT PROCEDURES: MEDICAL DECISION MAKING: There is no leukocytosis or concerning anemia. There was a normal platelet count. VBG showed what appears to be a respiratory alkalosis. Glucose was high at 330. No renal failure. Magnesium is somewhat low at 1.6. Initial lactic acid level was elevated, this lactic acid elevation could be consistent with sepsis and/or dehydration. There is no concerning liver enzyme elevation. No evidence for pancreatitis. Urinalysis shows dehydration and glucose, no infection. Stool panel is pending. Abdominal and pelvis CT did not show any acute surgical process. No diverticulitis or mention of colitis. On exam, the patient appeared quite uncomfortable. The patient received IV saline, 2 L. She was given IV Zofran, IV morphine, IV cefepime. She received IV Tylenol. The patient has made improvement with treatment here in the ED. Given the high lactic acid level, given her dehydration and hyperglycemia, given the need to return to the ED for reassessment, given the worsening of her situation, I do think she requires a hospital stay. Patient's illness may likely be viral or foodborne. She has received 30 cc/kg of saline based on her actual body weight. This should suffice for fluid hydration as per sepsis protocol. I spoke with the patient, I did speak with case management, the on-call hospitalist was consulted. Prior/Outside records/notes reviewed: Yesterday's ED note describing her presentation, findings and plan at discharge ECG per my interpretation: Indication was weakness. ECG shows a normal sinus rhythm with a rate of 60. There is some LVH present. There is no acute ST elevation, no PVCs. There is some nonspecific ST change. QTc is 430. Continuous Cardiac Monitoring per my interpretation: An order was placed for continuous cardiac monitoring. The monitor shows a rate of 53 with sinus bradycardia. Imaging/x-ray results per my interpretation: Chronic Medical/Social conditions affecting care: Advanced age. Care/Management discussed with: Case management, the on-call hospitalist. Level of care consideration(s): After review of the information above and other included data: --I believe the patient requires escalation of care to admission Critical Care Note: I have personally spent 45 minutes of critical care time in the direct management of this patient. This includes bedside care, interpretation of diagnostic studies, and testing, discussion with consultants, patient, and family members, and other required patient management activities. This 45 minutes is in excess of all separately billable procedures. DISPOSITION: Admission Past Med/Surg History Problem List (Updated 03/27/24 @ 14:09 by Alessandro Haque MD) Acute hyperglycemia (Acute) Failure of outpatient treatment (Acute) Elevated lactic acid level (Acute) Diffuse abdominal pain (Acute) Acute dehydration (Acute) Vomiting and diarrhea (Acute) Diarrhea Acute hyperglycemia (Acute) Epigastric discomfort (Acute) Acute dehydration (Acute) Nausea, vomiting and diarrhea (Acute) Diabetes mellitus type 1.5 Diabetes mellitus Frequent bowel movements Chest pain with normal coronary angiography Insomnia Moderate mitral regurgitation Preop cardiovascular exam Pre-op chest exam Chest pain FH: early coronary artery disease Dyslipidemia SOB (shortness of breath) Abnormal ECG Iron deficiency Lumbar radiculopathy Restless leg syndrome Migraines (Chronic) Acute skin change due to ultraviolet radiation (Acute) Headache (Acute) Medical History Type 2 diabetes mellitus Surgical History No history of previous surgery Family History Father Diabetes Myocardial infarction Mother Diabetes Brother Diabetes Sister Diabetes Other No significant family history Social History Smoking Status: Never smoker Hx Alcohol Use: No Hx Substance Use: No Preferred Language: German marital status: Current Living Situation: Spouse current occupational status: retired Feels Safe at Home: Yes Allergies Allergies Allergy/AdvReac Type Severity Reaction Status Date / Time diphenhydramine AdvReac Intermediate RLS SX Verified 01/17/24 13:03 prednisone AdvReac Intermediate exacerbated Verified 01/17/24 13:03 restless leg syndrome pramipexole AdvReac Muscle Pain Verified 01/17/24 13:03 MIGRAINE RX AdvReac Intermediate RLS SX Uncoded 01/17/24 13:03 steroid AdvReac Unknown Uncoded 01/17/24 13:03 Home Meds Home Medications Medication Instructions Recorded Confirmed flash glucose sensor (FreeStyle 11/15/23 01/17/24 Kvng 14 Day Sensor kit) lisinopril 30 mg tablet 30 mg PO DAILY 11/15/23 03/27/24 gabapentin 800 mg tablet 800 mg PO DAILY 03/27/24 03/27/24 insulin aspart U-100 100 unit/mL 4 unit subcut TID 03/27/24 03/27/24 subcutaneous solution (Novolog U-100 Insulin aspart) insulin glargine 100 unit/mL (3 16 unit subcut HS 03/27/24 03/27/24 mL) subcutaneous pen (Lantus Solostar U-100 Insulin) pramipexole 1.5 mg tablet 3 mg PO HS 03/27/24 03/27/24 Previous Rx's Medication Instructions Recorded sumatriptan succinate 50 mg tablet See Rx Instructions .Route 09/29/22 .COMPLEX #12 tabs blood-glucose meter,continuous #1 ea 12/20/23 (FreeStyle Kvng 3 [place]) pen needle, diabetic 32 gauge x #400 ea 01/12/24/32" (BD Ultra-Fine Lluvia Pen Needle) FreeStyle Kvng 3 Plus Sensor #2 ea 01/16/24 (blood-glucose sensor) acetone (urine) test (Ketostix #50 ea 03/09/24 strips) atorvastatin 20 mg tablet 20 mg PO DAILY #30 tabs 03/09/24 clonazepam 1 mg tablet 1 mg PO HS #30 tabs 03/12/24 ondansetron 4 mg disintegrating 4 - 8 mg (1 - 2 x 4 mg) PO Q8H PRN 03/26/24 tablet nausea and vomiting #14 tabs Results & Data (ED) Vital Signs Vital Signs - 24 hr 03/27/24 08:18 03/27/24 08:53 03/27/24 11:30 Temperature 36.4 C L Temperature Source Oral Pulse Rate 66 64 Pulse Rate [Apical] 53 L Respiratory Rate 20 18 Respiratory Effort / Characteristics Non-Labored Spontaneous Respiratory Depth Normal Respiratory Pattern Regular Blood Pressure 144/72 H Blood Pressure [Right Arm] 164/71 H Blood Pressure Mean 96 Blood Pressure Mean [Right Arm] 102 Pulse Oximetry 100 99 Oxygen Delivery Method Room Air Room Air Sepsis Recent Fever Within 48 Hours No Sepsis New/Unexplained Change in Mental Status N/A Sepsis Action Taken by Nursing No Action Required Home Medications Current Medication List: was personally reviewed by me Laboratory Data Attestation: I reviewed the patient's lab results. 03/27/24 08:41 03/27/24 08:41 Lab Results 03/27/24 03/27/24 03/27/24 Range/Units 08:41 09:30 09:50 WBC 6.49 (4.8-10.8) K/ul RBC 4.13 L (4.20-5.40) M/uL Hgb 12.6 (12.0-16.0) g/dl Hct 36.8 L (37.0-47.0) % MCV 89.1 (80.0-100.0) fL MCH 30.5 (25.0-34.0) pg MCHC 34.2 (32.0-36.0) g/dL RDW Std Deviation 41.4 (36.4-46.3) fL RDW Coeff of Mary Ellen 12.6 (11.5-14.5) % Plt Count 177 (130-400) K/uL MPV 12.3 (9.4-12.4) fL Immature Gran % (Auto) 0.5 % Neut % (Auto) 77.2 % Lymph % (Auto) 14.2 % Mccormick % (Auto) 7.6 % Eos % (Auto) 0.3 % Baso % (Auto) 0.2 % Neut # (Auto) 5.02 (1.40-6.50) K/uL Lymph # (Auto) 0.92 L (1.20-3.40) K/uL Mccormick # (Auto) 0.49 (0.11-0.59) K/uL Eos # (Auto) 0.02 (0.00-0.50) K/uL Baso # (Auto) 0.01 (0.00-0.20) K/uL Immature Gran # (Auto) 0.03 (0.01-0.20) K/uL VBG pH 7.50 H (7.36-7.41) VBG pCO2 25 L (38-50) mmHg VBG pO2 46 mmHg VBG HCO3 20 mmol/L VBG O2 Saturation 83.3 % VBG Base Excess -2.1 mEq/L Sodium 137 (136-145) mmol/L Potassium 3.9 (3.5-5.1) mmol/L Chloride 105 (98-107) mmol/L Carbon Dioxide 21 (21-32) mmol/L Anion Gap 11 (3-11) BUN 20 (6-23) mg/dl Creatinine 1.03 (0.6-1.2) mg/dl Est Cr Clr Drug Dosing 47.6 ml/min eGFR 58.49 BUN/Creatinine Ratio 19.4 (10-20) Glucose 330 H* (70-99(Fasting)) mg/dl POC Glucose (70-99) mg/dl Lactate 3.5 H* (0.4-2.0) mmol/L Calcium 9.2 (8.6-10.3) mg/dl Magnesium 1.6 L (1.7-2.4) mg/dl Total Bilirubin 0.7 (0.2-1.0) mg/dl AST 21 (13-39) U/L ALT 28 (7-52) U/L Alkaline Phosphatase 83 (34-104) U/L Troponin I High Sens 8.4 (0-14) pg/ml Total Protein 6.8 (6.0-8.3) gm/dl Albumin 3.9 (3.4-5.0) gm/dl Globulin 2.9 (2.5-4.0) gm/dl Albumin/Globulin Ratio 1.3 (0.9-2) Lipase 12 (11-82) U/L Procalcitonin Cancelled 0.36 Urine Color Yellow Urine Appearance Clear (Clear) Urine pH 5.5 (4.5-7.5) Ur Specific Savage 1.020 (1.000-1.030) Urine Protein Negative (Negative) Urine Glucose (UA) 3+ H (Negative) Urine Ketones Trace H (Negative) Urine Blood Negative (Negative) Urine Nitrite Negative (Negative) Urine Bilirubin Negative (Negative) Urine Urobilinogen Negative (Negative) Ur Leukocyte Esterase Negative (Negative) 03/27/24 03/27/24 Range/Units 13:06 13:48 WBC (4.8-10.8) K/ul RBC (4.20-5.40) M/uL Hgb (12.0-16.0) g/dl Hct (37.0-47.0) % MCV (80.0-100.0) fL MCH (25.0-34.0) pg MCHC (32.0-36.0) g/dL RDW Std Deviation (36.4-46.3) fL RDW Coeff of Mary Ellen (11.5-14.5) % Plt Count (130-400) K/uL MPV (9.4-12.4) fL Immature Gran % (Auto) % Neut % (Auto) % Lymph % (Auto) % Mccormick % (Auto) % Eos % (Auto) % Baso % (Auto) % Neut # (Auto) (1.40-6.50) K/uL Lymph # (Auto) (1.20-3.40) K/uL Mccormick # (Auto) (0.11-0.59) K/uL Eos # (Auto) (0.00-0.50) K/uL Baso # (Auto) (0.00-0.20) K/uL Immature Gran # (Auto) (0.01-0.20) K/uL VBG pH (7.36-7.41) VBG pCO2 (38-50) mmHg VBG pO2 mmHg VBG HCO3 mmol/L VBG O2 Saturation % VBG Base Excess mEq/L Sodium (136-145) mmol/L Potassium (3.5-5.1) mmol/L Chloride (98-107) mmol/L Carbon Dioxide (21-32) mmol/L Anion Gap (3-11) BUN (6-23) mg/dl Creatinine (0.6-1.2) mg/dl Est Cr Clr Drug Dosing ml/min eGFR BUN/Creatinine Ratio (10-20) Glucose (70-99(Fasting)) mg/dl POC Glucose 160 H (70-99) mg/dl Lactate 1.3 (0.4-2.0) mmol/L Calcium (8.6-10.3) mg/dl Magnesium (1.7-2.4) mg/dl Total Bilirubin (0.2-1.0) mg/dl AST (13-39) U/L ALT (7-52) U/L Alkaline Phosphatase (34-104) U/L Troponin I High Sens (0-14) pg/ml Total Protein (6.0-8.3) gm/dl Albumin (3.4-5.0) gm/dl Globulin (2.5-4.0) gm/dl Albumin/Globulin Ratio (0.9-2) Lipase (11-82) U/L Procalcitonin Urine Color Urine Appearance (Clear) Urine pH (4.5-7.5) Ur Specific Savage (1.000-1.030) Urine Protein (Negative) Urine Glucose (UA) (Negative) Urine Ketones (Negative) Urine Blood (Negative) Urine Nitrite (Negative) Urine Bilirubin (Negative) Urine Urobilinogen (Negative) Ur Leukocyte Esterase (Negative) Administered Medications Discontinued Medications Sodium Chloride (Nss) 1,000 mls @ 999 mls/hr IV .Q1H1M STA Stop: 03/27/24 09:41 Last Infusion: 03/27/24 09:50 Dose: Infused Documented By: Admin: 03/27/24 08:51 Dose: 999 mls/hr Documented By: SRL Acetaminophen (Ofirmev) 1,000 mg in 100 mls @ 400 mls/hr IV NOW STA Stop: 03/27/24 08:55 Last Infusion: 03/27/24 09:08 Dose: Infused Documented By: Admin: 03/27/24 08:51 Dose: 400 mls/hr Documented By: SRL Sodium Chloride (Nss) 1,000 mls @ 999 mls/hr IV .Q1H1M ONE Stop: 03/27/24 10:57 Last Infusion: 03/27/24 11:43 Dose: Infused Documented By: Admin: 03/27/24 10:30 Dose: 999 mls/hr Documented By: SRL Cefepime HCl (Maxipime 2000mg) 2,000 mg in 20 mls @ 5 mls/min IV NOW STA; Protocol Stop: 03/27/24 10:00 Last Admin: 03/27/24 10:30 Dose: 5 mls/min Documented By: SRL Ioversol (Optiray 320 100ml) 94 ml IV ONCE ONE Stop: 03/27/24 10:15 Last Admin: 03/27/24 10:14 Dose: 94 ml Documented By: FELICE Morphine Sulfate (Morphine Sulfate 2 Mg/Ml Carp) 2 mg IV NOW STA Stop: 03/27/24 08:42 Last Admin: 03/27/24 08:51 Dose: 2 mg Documented By: SRL Ondansetron HCl (Ondansetron Inj 2 Mg/Ml 2 Ml Vial) 4 mg IV NOW STA Stop: 03/27/24 08:42 Last Admin: 03/27/24 08:51 Dose: 4 mg Documented By: SRL Imaging Data Radiologist's Impression: Abdomen/Pelvis CT 03/27/24 08:41 CT OF THE ABDOMEN AND PELVIS WITH CONTRAST CLINICAL HISTORY: Abdominal pain and diarrhea. COMPARISON STUDY: CT of the abdomen and pelvis February 18, 2024. TECHNIQUE: Following IV administration of 94 mL of Optiray, axial images of the abdomen and pelvis were obtained from the lung bases to the proximal femurs. Images were reviewed in the axial, sagittal, and coronal planes. IV contrast was administered without complication. Automated exposure control was utilized for the study. A dose lowering technique was utilized adhering to the principles of ALARA. CT DOSE: 940.68 mGy.cm FINDINGS: Visualized portions of the lung bases are unremarkable. There is no pneumatosis, free air or portal venous gas. Liver, spleen, adrenal glands, and kidneys are unremarkable. Pancreatic glandular atrophy is unchanged. A small cystic lesion measuring 2 x 0.9 cm within the uncinate process is unchanged. This favors a side branch IPMN. There is no biliary or pancreatic ductal dilatation. The caliber and wall thickness of small and large bowel are normal. The appendix is normal. Trace fluid within the pelvis. There is no evidence for a bowel obstruction. No lymphadenopathy. No fluid collections are present. IMPRESSION: 1. No bowel obstruction. No bowel wall thickening. Normal appendix. 2. Trace fluid within the pelvis. No fluid collections. ACT 112: Negative or not required by law. Electronically signed by: Martín Browne M.D. 03/27/2024 10:44 AM Discharge Plan Visit Data Chief Complaint: Flu Like Symptoms Stated Complaint: ABD PAIN, SHAKES/CHILLS, DIARRHEA ED Provider: Alessandro Haque Discharge Problem: Vomiting and diarrhea, Acute dehydration, Diffuse abdominal pain, Elevated lactic acid level, Failure of outpatient treatment, Acute hyperglycemia Patient Disposition: Admitted As Inpatient Condition: Fair Forms Stand Alone Forms: [facility] Prescriptions Prescriptions: No Action sumatriptan succinate 50 mg tablet See Rx Instructions .ROUTE .COMPLEX Qty: 12 3RF Dose Instruction: TAKE ONE TABLET BY MOUTH AT ONSET OF MIGRAINE NEEDED Rx Instructions: TAKE ONE TABLET BY MOUTH AT ONSET OF MIGRAINE NEEDED (DME) FreeStyle Kvng 3 Plus Sensor Device See Rx Instructions .Route Qty: 2 11RF Rx Instructions: Change sensor every 15 days (DME) Ketostix Strip See Rx Instructions .Route Qty: 50 11RF Rx Instructions: check for ketones every 2-4 hr with hyperglycemia atorvastatin 20 mg tablet 20 mg PO DAILY Qty: 30 2RF clonazepam 1 mg tablet 1 mg PO HS Qty: 30 1RF lisinopril 30 mg tablet 30 mg PO DAILY (DME) FreeStyle Kvng 14 Day Sensor Kit See Rx Instructions .Route Rx Instructions: As directed (DME) FreeStyle Kvng 3 [place] Misc See Rx Instructions .ROUTE .MEDSUPPLY Qty: 1 0RF Rx Instructions: for use with Kvng 3 sensors (DME) pen needle, diabetic [BD Ultra-Fine Lluvia Pen Needle] 32 gauge x 5/32" needle See Rx Instructions miscellaneous .MEDSUPPLY Qty: 400 3RF Rx Instructions: As directed to use with insulin pen ondansetron 4 mg tablet,disintegrating 4 - 8 mg PO Q8H PRN (Reason: nausea and vomiting) Qty: 14 0RF gabapentin 800 mg tablet 800 mg PO DAILY insulin aspart U-100 [Novolog U-100 Insulin aspart] 100 unit/mL solution 4 unit subcut TID Rx Instructions: for use in insulin pump; use up to 60 units per day Patient stated she was suppose to get the pump put in today but she has been sick so that has been postponed. pramipexole 1.5 mg tablet 3 mg PO HS insulin glargine [Lantus Solostar U-100 Insulin] 100 unit/mL (3 mL) insulin pen 16 unit SUBCUT HS Referrals Referrals: Blesisng Mojica [Primary Care Provider] -
[2024-03-27] MEDS: ACETAMINOPHEN 1,000 MG/100 ML VIAL IV STA (08:51)
[2024-03-27] MEDS: SODIUM CHLORIDE 0.9% 1,000 ML IV STA (08:51)
[2024-03-27] MEDS: MoRPHine SULFATE 2 MG/ML CARP IV STA (08:51)
[2024-03-27] MEDS: ONDANSETRON INJ 2 MG/ML 2 ML VIAL IV STA (08:51)
[2024-03-27 09:07] LABS: Basophils # (auto) 0.01 K/uL (0.00-0.20); Basophils % (auto) 0.2 %; Eosinophils # (auto) 0.02 K/uL (0.00-0.50); Eosinophils % (auto) 0.3 %; Hematocrit (blood only) 36.8 % (37.0-47.0); Hemoglobin 12.6 g/dl (12.0-16.0); Immature Granulocytes # (auto) 0.03 K/uL (0.01-0.20); Immature Granulocytes % (auto) 0.5 %; Lymphocytes # (auto) 0.92 K/uL (1.20-3.40); Lymphocytes % (auto) 14.2 %; Mean Corpuscular Hemoglobin 30.5 pg (25.0-34.0); Mean Corpuscular Hgb Conc 34.2 g/dL (32.0-36.0); Mean Corpuscular Volume 89.1 fL (80.0-100.0); Mean Platelet Volume 12.3 fL (9.4-12.4); Monocytes # (auto) 0.49 K/uL (0.11-0.59); Monocytes % (auto) 7.6 %; Neutrophils # (auto) 5.02 K/uL (1.40-6.50); Neutrophils % (auto) 77.2 %; Platelet Count 177 K/uL (130-400); RDW Coefficient of Variation 12.6 % (11.5-14.5); RDW Standard Deviation 41.4 fL (36.4-46.3); Red Blood Count 4.13 M/uL (4.20-5.40); White Blood Count 6.49 K/ul (4.8-10.8)
[2024-03-27 09:27] LABS: Base Excess VBG -2.1 mEq/L; HCO3 VBG 20 mmol/L; Oxygen Saturation VBG 83.3 %; PCO2 VBG 25 mmHg (38-50); PO2 VBG 46 mmHg
[2024-03-27 09:36] LABS: Appearance Urine Clear (Clear); Bilirubin Urine Negative (Negative); Blood Urine Negative (Negative); Color Urine Yellow; Glucose Urine UA 3+ (Negative); Ketones Urine Trace (Negative); Leukocyte Esterase Urine Negative (Negative); Nitrite Urine Negative (Negative); Protein Urine Negative (Negative); Urobilinogen Urine Negative (Negative); pH Urine 5.5 (4.5-7.5)
[2024-03-27 09:43] LABS: Albumin Globulin Ratio 1.3 (0.9-2); Albumin Level 3.9 gm/dl (3.4-5.0); BUN Creatinine Ratio 19.4 (10-20); Bilirubin,Total 0.7 mg/dl (0.2-1.0); Calcium 9.2 mg/dl (8.6-10.3); Creatinine Clr Calc Pharmacy 47.6 ml/min; Globulin 2.9 gm/dl (2.5-4.0); Potassium 3.9 mmol/L (3.5-5.1); Total Protein 6.8 gm/dl (6.0-8.3); Troponin I High Sensitivity 8.4 pg/ml (0-14)
[2024-03-27] MEDS: OPTIRAY 320 100ml IV ONE (10:14)
[2024-03-27] MEDS: CEFEPIME 2000MG 2,000 MG/20 ML SYR IV STA (10:30)
[2024-03-27] MEDS: SODIUM CHLORIDE 0.9% 1,000 ML IV ONE (10:30)
--- NOTE | 2024-03-27 10:45 | CT Scan Report ---
CT OF THE ABDOMEN AND PELVIS WITH CONTRAST CLINICAL HISTORY: Abdominal pain and diarrhea. COMPARISON STUDY: CT of the abdomen and pelvis February 18, 2024. TECHNIQUE: Following IV administration of 94 mL of Optiray, axial images of the abdomen and pelvis we re obtained from the lung bases to the proximal femurs. Images were reviewed in the axial, sagittal, and coronal planes. IV contrast was administered without complication. Automated exposure control wa s utilized for the study. A dose lowering technique was utilized adhering to the principles of ALARA . CT DOSE: 940.68 mGy.cm FINDINGS: Visualized portions of the lung bases are unremarkable. There is no pneumatosis, free air o r portal venous gas. Liver, spleen, adrenal glands, and kidneys are unremarkable. Pancreatic glandula r atrophy is unchanged. A small cystic lesion measuring 2 x 0.9 cm within the uncinate process is unc hanged. This favors a side branch IPMN. There is no biliary or pancreatic ductal dilatation. The smith georgina and wall thickness of small and large bowel are normal. The appendix is normal. Trace fluid within the pelvis. There is no evidence for a bowel obstruction. No lymphadenopathy. No f luid collections are present. IMPRESSION: 1. No bowel obstruction. No bowel wall thickening. Normal appendix. 2. Trace fluid within the pelvis. No fluid collections. ACT 112: Negative or not required by law. Electronically signed by: Martín Browne M.D. 03/27/2024 10:44 AM
--- NOTE | 2024-03-27 12:27 | History & Physical Report ---
Date of Service March 27, 2024 Assessment & Plan (1) Diarrhea: Plan: Mellisa is a 68-year-old female with PMH of T2DM, lumbar radiculopathy, CAD, dyslipidemia, migraines, and restless leg syndrome. She presented for severe abdominal pain and N/V/D that began on Tuesday night (03/24). Patient has had consistent diarrhea since that time, however her vomiting stopped yesterday on 03/26. She presented to the ED on 03/26, but initial workup was unremarkable and she was sent home. Since then, her abdominal pain has persisted, and she returned on 03/27. No leukocytosis; afebrile A/P CT reassuring; no bowel obstruction; normal appendix Lactate 3.5 ->1.3 on arrival Patient is not septic on arrival: normotensive / stable vitals Suspect elevated lactate in the setting of severe dehydration/hypovolemia VB.50/25/46/20 Procalcitonin WNL PCR Stool ordered, pending Given no leukocytosis, recent abx use, or h/o C. Diff, will defer testing on admission Cefepime x 1 given; will defer further antibiotics for now Leading DDx on arrival includes viral GI illness; ? Norovirus Supportive care for now IV Zofran and Compazine as needed for nausea/vomiting IV acetaminophen and morphine as needed for pain control (2) Type 2 diabetes mellitus: Plan: Last A1c at 7.7% on 03/01/2024 Glucose 330 on admission Patient is normally on Lantus 16u HS Lantus 8u BID while inpatient SSI; with target BSG range 110-140mg/dL, CF 50, carb ratio 15 BSG ACHS Adjust regimen as needed (3) Acute dehydration: Plan: NSS 1000 mL IV x 2 in the ED Additional IVF resuscitation as needed; encourage p.o. intake once tolerating p.o. fluids Clear liquid diet for now, and advance as tolerated Plan Disposition: Admit to MedSurg Full code Clear liquid diet for now, advance to T2DM diet as tolerated VTE PPx: Lovenox 40 mg SQ q24h History of Present Illness Chief Complaint: Diarrheal illness Primary Care Provider: Blessing Mojica Mellisa is a 68-year-old female with PMH of T2DM, lumbar radiculopathy, CAD, dyslipidemia, migraines, and restless leg syndrome. She presented on 03/27 for severe abdominal pain and N/V/D that began on Tuesday night (03/24). Patient has had consistent diarrhea since then, however her vomiting stopped yesterday on 03/26. She presented to the ED on 03/26, but initial workup was unremarkable. Since then, her abdominal pain has persisted. She reports that it is mainly located epigastric pain in her RLQ/suprapubic region. She characterizes it as a n intermittent, "sickening" pain that will occasionally radiate to her lower back. She rates the pain 10/10 at worst, and 9/10 at present after receiving pain medicine in the ED. Not worse with movements. Not worse after drinking fluids. She has not been taking anything at home for the pain as she has difficulty keeping things down. She took Pepto-Bismol yesterday for her diarrhea, as well as NyQuil flu last night. She has also been trying to keep Powerade down. Patient was able to tolerate toast this morning, but otherwise has been unable to keep down solids/fluids. She denies any blood in her stool. No recent antibiotics use or history of C. difficile infections. She does note that her diarrhea was dark/tarry at one point, but does note that this was after she took Pepto-Bismol. No prior history of kidney stones. Patient did not take her regular morning medicine today; the only thing she has had today is 4 units of NovoLog. Patient does have an allergy to Benadryl and steroids/prednisone; they cause her restless leg syndrome to become exacerbated. While patient may have had a mild fever on Tuesday night, she believes it was low-grade. Other than that, she has had chills, night sweats, and bodyaches. Patient denies smoking, tobacco use, or alcohol use. Patient is hypertensive 164/71, and mildly bradycardic at 53 bpm at time admission; vitals otherwise stable. ED course: NSS 1000 mL IV x 2 Acetaminophen 1000 mg IV Ondansetron 4 mg IV Morphine 2 mg IV Cefepime 2000 mg IV ROS: Patient endorses chills, night-sweats, body aches, headache, dry cough, RLQ pain , N/V/D, dark/tarry stool (which patient attributes to taking pepto-bismol), and lower back pain. Patient denies fever, dizziness, lightheadedness, chest pain, chest pressure, pleuritic CP, SOB, urinary symptoms, burning with urination, blood in the urine, BRB in stool, saddle anesthesia, or numbness/tingling in the legs. Allergies Allergy/AdvReac Type Severity Reaction Status Date / Time diphenhydramine AdvReac Intermediate RLS SX Verified 01/17/24 13:03 metformin AdvReac Intermediate Diarrhea Verified 03/28/24 11:53 prednisone AdvReac Intermediate exacerbated Verified 01/17/24 13:03 restless leg syndrome pramipexole AdvReac Muscle Pain Verified 01/17/24 13:03 MIGRAINE RX AdvReac Intermediate RLS SX Uncoded 01/17/24 13:03 steroid AdvReac Unknown Uncoded 01/17/24 13:03 Home Medications Medication Instructions Recorded Confirmed Type sumatriptan succinate 50 mg tablet See Rx Instructions .Route 09/29/22 03/27/24 Rx .COMPLEX #12 tabs flash glucose sensor (FreeStyle 11/15/23 01/17/24 History Kvng 14 Day Sensor kit) lisinopril 30 mg tablet 30 mg PO DAILY 11/15/23 03/27/24 History blood-glucose meter,continuous #1 ea 12/20/23 01/17/24 Rx (FreeStyle Kvng 3 [place]) pen needle, diabetic 32 gauge x #400 ea 01/12/24 01/17/24 Rx 5/32" (BD Ultra-Fine Lluvia Pen Needle) FreeStyle Kvng 3 Plus Sensor #2 ea 01/16/24 01/17/24 Rx (blood-glucose sensor) acetone (urine) test (Ketostix #50 ea 03/09/24 Rx strips) atorvastatin 20 mg tablet 20 mg PO DAILY #30 tabs 03/09/24 03/27/24 Rx clonazepam 1 mg tablet 1 mg PO HS #30 tabs 03/12/24 03/27/24 Rx ondansetron 4 mg disintegrating 4 - 8 mg (1 - 2 x 4 mg) PO Q8H PRN 03/26/24 03/27/24 Rx tablet nausea and vomiting #14 tabs gabapentin 800 mg tablet 800 mg PO DAILY 03/27/24 03/27/24 History insulin aspart U-100 100 unit/mL 4 unit subcut TID 03/27/24 03/27/24 History subcutaneous solution (Novolog U-100 Insulin aspart) insulin glargine 100 unit/mL (3 16 unit subcut HS 03/27/24 03/27/24 History mL) subcutaneous pen (Lantus Solostar U-100 Insulin) pramipexole 1.5 mg tablet 3 mg PO HS 03/27/24 03/27/24 History tramadol 50 mg tablet 50 mg PO Q8H PRN pain #10 tabs 03/29/24 Rx Past Med/Surg History Problem List (Updated 03/28/24 @ 11:10 by Neha Fontana MD) Gastroenteritis due to norovirus Acute hyperglycemia (Acute) Failure of outpatient treatment (Acute) Elevated lactic acid level (Acute) Diffuse abdominal pain (Acute) Acute dehydration (Acute) Vomiting and diarrhea (Acute) Diarrhea Acute hyperglycemia (Acute) Epigastric discomfort (Acute) Acute dehydration (Acute) Nausea, vomiting and diarrhea (Acute) Diabetes mellitus type 1.5 Diabetes mellitus Frequent bowel movements Chest pain with normal coronary angiography Insomnia Moderate mitral regurgitation Preop cardiovascular exam Pre-op chest exam Chest pain FH: early coronary artery disease Dyslipidemia SOB (shortness of breath) Abnormal ECG Iron deficiency Lumbar radiculopathy Restless leg syndrome Migraines (Chronic) Acute skin change due to ultraviolet radiation (Acute) Headache (Acute) Medical History Type 2 diabetes mellitus Surgical History No history of previous surgery Family History Father Diabetes Myocardial infarction Mother Diabetes Brother Diabetes Sister Diabetes Other No significant family history Social History Smoking Status: Never smoker Second Hand Exposure: No; Do You Dip or Chew Tobacco: No; Hx Alcohol Use: No Hx Substance Use: No Preferred Language: [place] Communication Ability: Effective Society Reporter Required: No Beliefs That Will Affect Care: None marital status: Current Living Situation: Spouse current occupational status: retired Feels Safe at Home: Yes Assistive Devices: Glasses Review of Systems Review of Systems: See HPI above Physical Exam Physical Exam: General: Acute physical distress secondary to abdominal pain; non-toxic appearing; at bedside; cooperative; SpO2 99% on RA HEENT: normocephalic, atraumatic; no scleral icterus; PERRLA; vision and hearing grossly intact Neck: supple; no lymphadenopathy; trachea midline Skin: Diaphoretic; warm, without signs of tenting; no cyanosis; no rashes, brui sing, lesions, or erythema noted CV: chest wall NTP; RRR; S1/S2 normal; no murmurs/rubs/gallops; pulses intact and symmetric at radial, DP, and PT Lungs: no acute respiratory distress; symmetrical chest wall expansion; clear breath sounds across all lung [place] w/o adventitious sounds; no wheezing ABD: Soft; patient endorses epigastric pain to palpation, as well as RLQ pain to palpation, and suprapubic tenderness; no rashes or bruising noted on the abdomen or flanks bilaterally; flanks are NTP; BS present; no rebound/guarding; no distention Back: Negative CVA tenderness bilaterally MSK: no tics or fasciculations; no edema noted in the LEs b/l, nonerythematous Neuro: A&Ox3; normal mood and affect; fluent speech; no focal deficits; sensation intact and symmetric in lower extremities bilaterally Results & Data Results & Data Vital Signs (Past 12 Hours) Vital Signs Temp Pulse Pulse Resp BP BP Pulse Ox 03/27/24 11:30 53 L 18 164/71 H 99 03/27/24 08:53 64 03/27/24 08:18 36.4 C L 66 20 144/72 H 100 O2 Del Method 03/27/24 11:30 Room Air 03/27/24 08:53 03/27/24 08:18 Room Air Laboratory Results Abnormal lab results 03/27/24 03/27/24 Range/Units 08:41 09:30 RBC 4.13 L (4.20-5.40) M/uL Hct 36.8 L (37.0-47.0) % Lymph # (Auto) 0.92 L (1.20-3.40) K/uL VBG pH 7.50 H (7.36-7.41) VBG pCO2 25 L (38-50) mmHg Glucose 330 H* (70-99(Fasting)) mg/dl Lactate 3.5 H* (0.4-2.0) mmol/L Urine Glucose (UA) 3+ H (Negative) Urine Ketones Trace H (Negative) Diagnostic Findings Abdomen/Pelvis CT 03/27/24 08:41 CT OF THE ABDOMEN AND PELVIS WITH CONTRAST CLINICAL HISTORY: Abdominal pain and diarrhea. COMPARISON STUDY: CT of the abdomen and pelvis February 18, 2024. TECHNIQUE: Following IV administration of 94 mL of Optiray, axial images of the abdomen and pelvis were obtained from the lung bases to the proximal femurs. Images were reviewed in the axial, sagittal, and coronal planes. IV contrast was administered without complication. Automated exposure control was utilized for the study. A dose lowering technique was utilized adhering to the principles of ALARA. CT DOSE: 940.68 mGy.cm FINDINGS: Visualized portions of the lung bases are unremarkable. There is no pneumatosis, free air or portal venous gas. Liver, spleen, adrenal glands, and kidneys are unremarkable. Pancreatic glandular atrophy is unchanged. A small cystic lesion measuring 2 x 0.9 cm within the uncinate process is unchanged. This favors a side branch IPMN. There is no biliary or pancreatic ductal dilatation. The caliber and wall thickness of small and large bowel are normal. The appendix is normal. Trace fluid within the pelvis. There is no evidence for a bowel obstruction. No lymphadenopathy. No fluid collections are present. IMPRESSION: 1. No bowel obstruction. No bowel wall thickening. Normal appendix. 2. Trace fluid within the pelvis. No fluid collections. ACT 112: Negative or not required by law. Electronically signed by: Martín Browne M.D. 03/27/2024 10:44 AM ECG Additional Comments: ECG on 03/26 revealed NSR at 60 bpm; QTc 430 Code Status & VTE Plan Code Status Full code VTE Prophylaxis Plan VTE Prophylaxis will be ordered: Yes Supervising Physician Co-Signing Physician Notes I personally saw and examined the patient. I independently reviewed the labs, EKG, imaging, problem list, medication list, past medical history and family history. I verified all flores points and agree with Aden Marshall PA-C with the following exceptions and/or additions: 68 year old female presents to the ER with abdominal pain and diarrhea. Norovirus positive when seen and abdominal pain resolved. O/E HS RRR, no murmurs, Chest CTAB, Abdo SNT A/P Norovirus - added loperamide for any ongoing diarrhea. Discussed observation overnight and likely can be discharged tomorrow if doing well and tolerating increased diet. PG Care Time/CCT Total # of Minutes Spent Total Time Spent with Patient: Total time spent is greater than 50% in coordination of care (as documented) at patient's floor/unit and/or counseling patient: C[place] [address] INT INP/OBS CARE 3/75MIN Patient Type Established Medical Decision Making High Complexity Diagnoses Diarrhea R19.7 Type 2 diabetes mellitus E11.9 Acute dehydration E86.0
[2024-03-27] MEDS: MAGNESIUM SULFATE / D5W 1 GM/100 ML BAG IV SCH (14:49)
[2024-03-27] MEDS: FAMOTIDINE 20MG IV PUSH 20 MG/5 ML SYR IV STA (14:49)
[2024-03-27 15:18] LABS: Adenovirus F 40/41 PCR Not Detected (NotDetected); Astrovirus PCR Not Detected (NotDetected); Campylobacter PCR Not Detected (NotDetected); Cryptosporidium PCR Not Detected (NotDetected); Cyclospora cayetanensis PCR Not Detected (NotDetected); Entamoeba histolytica PCR Not Detected (NotDetected); Enteroaggregative E.coli(EAEC) Not Detected (NotDetected); Enteropathogenic E.coli (EPEC) Not Detected (NotDetected); Enterotoxigenic E.coli (ETEC) Not Detected (NotDetected); Giardia lamblia PCR Not Detected (NotDetected); Plesiomonas shigelloides PCR Not Detected (NotDetected); Rotavirus A PCR Not Detected (NotDetected); Salmonella PCR Not Detected (NotDetected); Sapovirus PCR Not Detected (NotDetected); Shiga-like Toxin E.coli (STEC) Not Detected (NotDetected); Shigella/Enteroinvasive E.coli Not Detected (NotDetected); Vibrio cholerae PCR Not Detected (NotDetected); Vibrio species PCR Not Detected (NotDetected); Yersinia enterocolitica PCR Not Detected (NotDetected)
[2024-03-27 15:41] LABS: Norovirus GI/GII PCR DETECTED (NotDetected)
[2024-03-27] MEDS ORDERED: GLUCOSE 10 TAB/TUBE PO PRN (15:49)
[2024-03-27] MEDS ORDERED: PROCHLORPERAZINE 5 MG in SYRINGE 4 ML IV PRN (15:49)
[2024-03-27] MEDS ORDERED: CARBOHYDRATES FOR HYPOGLYCEMIA PO PRN (15:49)
[2024-03-27] MEDS ORDERED: DEXTROSE 50% 50 ML SYRINGE IV PRN (15:49)
[2024-03-27] MEDS ORDERED: GLUCAGON FOR INJ 1 MG VIAL SQ PRN (15:49)
[2024-03-27] MEDS ORDERED: GLUCOSE 40% GEL 15 GM TUBE PO PRN (15:49)
[2024-03-27] MEDS: PRAMIPEXOLE DIHYDROCHLO 0.5 MG TAB PO SCH (18:06)
[2024-03-27] MEDS: INSULIN ASPART PER UNIT CHARGE SC SCH (18:29)
[2024-03-27] MEDS: ACETAMINOPHEN 1,000 MG/100 ML VIAL IV PRN (19:45)
[2024-03-27] MEDS: ONDANSETRON INJ 2 MG/ML 2 ML VIAL IV PRN (19:46)
[2024-03-27] MEDS ORDERED: LOPERAMIDE HCL 2 MG CAP PO PRN (20:29)
[2024-03-27] MEDS: MAGNESIUM SULFATE / D5W 1 GM/100 ML BAG IV ONE (21:09)
[2024-03-27] MEDS: clonazePAM 1 MG TAB PO SCH (21:10)
[2024-03-27] MEDS: ENOXAPARIN INJ 40 MG/0.4 ML SYR SQ SCH (21:11)
[2024-03-27] MEDS: LANTUS PER UNIT CHARGE SQ SCH (21:20)
[2024-03-28] MEDS: SUMAtriptan succinate 50 MG TAB PO PRN (03:22)
[2024-03-28 06:57] LABS: Basophils # (auto) 0.02 K/uL (0.00-0.20); Basophils % (auto) 0.5 %; Eosinophils # (auto) 0.07 K/uL (0.00-0.50); Eosinophils % (auto) 1.8 %; Immature Granulocytes # (auto) 0.01 K/uL (0.01-0.20); Immature Granulocytes % (auto) 0.3 %; Lymphocytes # (auto) 1.18 K/uL (1.20-3.40); Lymphocytes % (auto) 30.6 %; Mean Corpuscular Hemoglobin 30.8 pg (25.0-34.0); Mean Corpuscular Hgb Conc 34.3 g/dL (32.0-36.0); Mean Corpuscular Volume 89.7 fL (80.0-100.0); Mean Platelet Volume 11.8 fL (9.4-12.4); Monocytes # (auto) 0.45 K/uL (0.11-0.59); Monocytes % (auto) 11.7 %; Neutrophils # (auto) 2.13 K/uL (1.40-6.50); Neutrophils % (auto) 55.1 %; Platelet Count 151 K/uL (130-400); RDW Coefficient of Variation 12.7 % (11.5-14.5); RDW Standard Deviation 41.7 fL (36.4-46.3); White Blood Count 3.86 K/ul (4.8-10.8)
[2024-03-28 07:18] LABS: BUN Creatinine Ratio 14.1 (10-20); Creatinine Clr Calc Pharmacy 53.3 ml/min
[2024-03-28] MEDS: ATORVASTATIN 20 MG TAB PO SCH (08:12)
[2024-03-28] MEDS: lisinopril 10 MG TAB PO SCH (08:12)
[2024-03-28] MEDS: GABAPENTIN 800 MG TAB PO SCH (08:12)
--- NOTE | 2024-03-28 11:14 | Hospitalist Progress Note ---
Date of Service March 28, 2024 Assessment & Plan (1) Gastroenteritis due to norovirus: Plan: Mellisa is a 68-year-old female with PMH of T2DM, lumbar radiculopathy, CAD, dyslipidemia, migraines, and restless leg syndrome. She presented for severe abdominal pain and N/V/D that began on Tuesday night (03/24). Patient has had consistent diarrhea since that time, however her vomiting stopped yesterday on 03/26. She presented to the ED on 03/26, but initial workup was unremarkable and she was sent home. Since then, her abdominal pain has persisted, and she returned on 03/27. Stool studies positive for noro virus CT abdomen wnl will continue symptomatic mgt encourage oral intake Received IV fluids in the ED (2) Type 2 diabetes mellitus: Plan: Last A1c at 7.7% on 03/01/2024 Glucose 330 on admission Patient is normally on Lantus 16u HS Lantus 8u BID while inpatient SSI; with target BSG range 110-140mg/dL, CF 50, carb ratio 15 BSG ACHS Adjust regimen as needed (3) Acute dehydration: Plan: NSS 1000 mL IV x 2 in the ED Additional IVF resuscitation as needed; encourage p.o. intake once tolerating p.o. fluids Clear liquid diet for now, and advance as tolerated (4) Diarrhea: Plan [facility]: [facility] Clear liquid diet for now, advance to T2DM diet as tolerated VTE PPx: Lovenox 40 mg SQ q24h Admission and Anticipated Discharge Date Admission Date: March 27, 2024 Subjective patient seen and examined, no episodes of diarrhea this morning, although complains of mild abd pain Review of Systems Review of Systems: All systems reviewed are negative, apart from the ones contained in the history. Physical Exam Physical Exam: The patient is awake, alert and oriented 3, well developed and well nourished, normocephalic and atraumatic, lying in bed and in no acute distress. HEENT--PERRL, EOMI, mucous membranes and oropharynx mildly dry Neck--supple. No JVD. No bruits. Thyroid normal, trachea midline, no adenopathy. Heart--normal S1 and S2. No murmurs, rubs or gallops. Lungs--clear bilaterally, no respiratory distress, no accessory muscle use. Abdomen--normal bowel sounds and soft. Extremities--no cyanosis or clubbing. No edema. Dermatologic--normal skin turgor, normal color, no abnormal lymph nodes, no rash. Neurologic--cranial nerves II through XII grossly intact. Rheumatologic--normal range of motion. Psychiatric--normal affect. Results & Data Results & Data Vital Signs (Past 12 Hours) Vital Signs Temp Pulse Resp BP Pulse Ox O2 Del Method 03/28/24 07:58 97.7 F 61 14 160/64 H 98 Room Air PG Care Time/CCT Total # of Minutes Spent Total Time Spent with Patient: Total time spent is greater than 50% in coordination of care (as documented) at patient's floor/unit and/or counseling patient: Coding Level of Care Code 33945 SUB INP/OBS CARE 2/35MIN Diagnoses Gastroenteritis due to norovirus A08.11 Type 2 diabetes mellitus E11.9 Acute dehydration E86.0 Diarrhea R19.7 Time Spent (min) 35
[2024-03-28] MEDS: MoRPHine SULFATE 2 MG/ML CARP IV PRN (17:17)
[2024-03-28 21:03] VITALS: RESP 18; O2SAT 96
[2024-03-28] MEDS: SUMAtriptan succinate 50 MG TAB PO ONE (21:55)
[2024-03-29 06:35] LABS: Basophils # (auto) 0.02 K/uL (0.00-0.20); Basophils % (auto) 0.4 %; Eosinophils # (auto) 0.13 K/uL (0.00-0.50); Eosinophils % (auto) 2.5 %; Hematocrit (blood only) 33.8 % (37.0-47.0); Hemoglobin 11.5 g/dl (12.0-16.0); Immature Granulocytes # (auto) 0.01 K/uL (0.01-0.20); Immature Granulocytes % (auto) 0.2 %; Lymphocytes % (auto) 30.9 %; Mean Corpuscular Hemoglobin 30.5 pg (25.0-34.0); Mean Corpuscular Volume 89.7 fL (80.0-100.0); Mean Platelet Volume 12.2 fL (9.4-12.4); Monocytes # (auto) 0.55 K/uL (0.11-0.59); Monocytes % (auto) 10.6 %; Neutrophils # (auto) 2.86 K/uL (1.40-6.50); Neutrophils % (auto) 55.4 %; Platelet Count 165 K/uL (130-400); RDW Coefficient of Variation 12.7 % (11.5-14.5); RDW Standard Deviation 41.4 fL (36.4-46.3); Red Blood Count 3.77 M/uL (4.20-5.40); White Blood Count 5.17 K/ul (4.8-10.8)
[2024-03-29 06:55] LABS: BUN Creatinine Ratio 18.6 (10-20); Calcium 8.9 mg/dl (8.6-10.3)
[2024-03-29 08:09] VITALS: BP 150/71; PULSE 52; TEMP 97.9
--- NOTE | 2024-03-29 10:40 | Discharge Summary ---
Date of Service March 29, 2024 Admission HPI Per Admitting Provider Mellisa is a 68-year-old female with PMH of T2DM, lumbar radiculopathy, CAD, dyslipidemia, migraines, and restless leg syndrome. She presented on 03/27 for severe abdominal pain and N/V/D that began on Tuesday night (03/24). Patient has had consistent diarrhea since then, however her vomiting stopped yesterday on 03/26. She presented to the ED on 03/26, but initial workup was unremarkable. Since then, her abdominal pain has persisted. She reports that it is mainly located epigastric pain in her RLQ/suprapubic region. She characterizes it as an intermittent, "sickening" pain that will occasionally radiate to her lower back. She rates the pain 10/10 at worst, and 9/10 at present after receiving pain medicine in the ED. Not worse with movements. Not worse after drinking fluids. She has not been taking anything at home for the pain as she has difficulty keeping things down. She took Pepto-Bismol yesterday for her diarrhea, as well as NyQuil flu last night. She has also been trying to keep Powerade down. Patient was able to tolerate toast this morning, but otherwise has been unable to keep down solids/fluids. She denies any blood in her stool. No recent antibiotics use or history of C. difficile infections. She does note that her diarrhea was dark/tarry at one point, but does note that this was after she took Pepto-Bismol. No prior history of kidney stones. Patient did not take her regular morning medicine today; the only thing she has had today is 4 units of NovoLog. Patient does have an allergy to Benadryl and steroids/prednisone; they cause her restless leg syndrome to become exacerbated. While patient may have had a mild fever on Tuesday night, she believes it was low-grade. Other than that, she has had chills, night sweats, and bodyaches. Patient denies smoking, tobacco use, or alcohol use. Patient is hypertensive 164/71, and mildly bradycardic at 53 bpm at time admission; vitals otherwise stable. ED course: NSS 1000 mL IV x 2 Acetaminophen 1000 mg IV Ondansetron 4 mg IV Morphine 2 mg IV Cefepime 2000 mg IV ROS: Patient endorses chills, night-sweats, body aches, headache, dry cough, RLQ pain, N/V/D, dark/tarry stool (which patient attributes to taking pepto-bismol), and lower back pain. Patient denies fever, dizziness, lightheadedness, chest pain, chest pressure, pleuritic CP, SOB, urinary symptoms, burning with urination, blood in the urine, BRB in stool, saddle anesthesia, or numbness/tingling in the legs. Admission Exam (Per Admitting) Constitutional The patient is awake, alert and oriented 3, well developed and well nourished, normocephalic and atraumatic, lying in bed and in no acute distress. HEENT--PERRL, EOMI, mucous membranes and oropharynx mildly dry Neck--supple. No JVD. No bruits. Thyroid normal, trachea midline, no adenopathy. Heart--normal S1 and S2. No murmurs, rubs or gallops. Lungs--clear bilaterally, no respiratory distress, no accessory muscle use. Abdomen--normal bowel sounds and soft. Extremities--no cyanosis or clubbing. No edema. Dermatologic--normal skin turgor, normal color, no abnormal lymph nodes, no rash. Neurologic--cranial nerves II through XII grossly intact. Rheumatologic--normal range of motion. Psychiatric--normal affect. Discharge Data Consultations 03/27/24 12:18 ED Decision to Admit Stat Hospital Course (1) Gastroenteritis due to norovirus: Melilsa is a 68-year-old female with PMH of T2DM, lumbar radiculopathy, CAD, dyslipidemia, migraines, and restless leg syndrome. She presented for severe abdominal pain and N/V/D that began on Tuesday night (03/24). Patient has had consistent diarrhea since that time, however her vomiting stopped yesterday on 03/26. She presented to the ED on 03/26, but initial workup was unremarkable and she was sent home. Since then, her abdominal pain has persisted, and she returned on 03/27. Stool studies positive for noro virus CT abdomen wnl will continue symptomatic mgt encourage oral intake Received IV fluids in the ED still some mild abd cramps (2) Type 2 diabetes mellitus: Last A1c at 7.7% on 03/01/2024 Glucose 330 on admission Patient is normally on Lantus 16u HS Lantus 8u BID while inpatient SSI; with target BSG range 110-140mg/dL, CF 50, carb ratio 15 BSG ACHS Adjust regimen as needed (3) Acute dehydration: Resolved (4) Diarrhea: no diarrhea for the past 2 days Plan Disposition: d/c home Full code Clear liquid diet for now, advance to T2DM diet as tolerated VTE PPx: Lovenox 40 mg SQ q24h Coding Level of Care Code 78416 INP/OBS DISCH >30 MIN Diagnoses Gastroenteritis due to norovirus A08.11 Type 2 diabetes mellitus E11.9 Acute dehydration E86.0 Diarrhea R19.7 Time Spent (min) 35
== END 2024-03-29 14:09 | disposition home or self-care (01) | DRG 392 ==
LOC: ED 08:01 → EDINP 13:11 → SUATTDRO 13:11 → 3E 15:50